=== PATIENT | male | born 1940 | race African-American/Black ===

== ENCOUNTER → 2016-09-08 | Outpatient (CLI) | payer OTHER ==
--- NOTE | 2016-09-09 16:12 | RADIOLOGY REPORT (SQ) ---
EXAM DESCRIPTION: PET CT LIMITED COMPLETED DATE/TIME: 09/08/2016 8:31 pm REASON FOR STUDY: ABNORMAL FINDINGS OF LUNG CT R91.8 OTHER NONSPECIFIC ABNORMAL FINDING OF LUNG FIE LD COMPARISON: Outside CT chest not available RADIONUCLIDE AND DOSE: 11.3 mCi F18 FDG The route of agent administration: Intravenous FASTING BLOOD SUGAR: 93 mg/dl CONTRAST TYPE AND DOSE: No CT contrast given. TECHNIQUE: Blood glucose level was verified. Above dose of FDG was injected intravenously. 2-D seg mented attenuation correction images were obtained from the base of the skull to the midthighs. Nonc ontrast CT images were obtained for attenuation correction and fusion with emission images. CT image s were performed without oral or intravenous contrast and are not sensitive for parenchymal lesions. A series of overlapping emission PET images were obtained. Images reviewed and manipulated at [facility] work station by the radiologist. Images stored on PACS. LIMITATIONS: None. FINDINGS: HEAD AND NECK: No areas of abnormal metabolic activity in the soft tissues of the head and neck. CHEST: No areas of abnormal metabolic activity in the chest. On axial image 8, a less than 1 cm non metabolic scar is present in the left upper lobe. Calcified benign non metabolic granulomas are seen in the left upper lobe on axial image 92 and 99. ABDOMEN AND PELVIS: No areas of abnormal metabolic activity in the abdomen or pelvis. Expected physi ologic activity is present in the genitourinary system and bowel. PROXIMAL LOWER EXTREMITIES: No areas of abnormal metabolic activity in the soft tissues of the lower extremities. BONES: No abnormal metabolic activity in the visualized skeleton. ADDITIONAL CT FINDINGS: Obstructive lung disease. Coronary artery calcification. OTHER: Blood pool activity 1.9 SUV, liver activity 2.4 SUV IMPRESSION: No hypermetabolic lung lesions worrisome for malignancy. TECHNICAL DOCUMENTATION: JOB ID: [id number] [employer]- All Rights Reserved
== END ==
LOC: RAD 18:26
PROVIDERS: ATTEND Clinical Nurse Specialist Adult Health
DX: R91.8 Other nonspecific abnormal finding of lung field (principal)
CPT/HCPCS: 78814; A9552

== ENCOUNTER → 2018-04-14 | Outpatient (CLI) | payer OTHER ==
--- NOTE | 2018-04-15 10:11 | RADIOLOGY REPORT (SQ) ---
EXAM DESCRIPTION: PET CT SKULL/THIGH COMPLETED DATE/TIME: 04/14/2018 10:45 pm REASON FOR STUDY: R91.8 OTHER NONSPECIFIC ABNORMAL FINDING OF LUNG FIELD R91.8 OTHER NONSPECIFIC AB NORMAL FINDING OF LUNG FIELD COMPARISON: 09/08/2016 PET-CT CT chest report 10/14/2017 [facility] RADIONUCLIDE AND DOSE: 11.4 mCi F18 FDG The route of agent administration: Intravenous FASTING BLOOD SUGAR: 102 mg/dl CONTRAST TYPE AND DOSE: No CT contrast given. TECHNIQUE: Blood glucose level was verified. Above dose of FDG was injected intravenously. 2-D seg mented attenuation correction images were obtained from the base of the skull to the midthighs. Nonc ontrast CT images were obtained for attenuation correction and fusion with emission images. CT image s were performed without oral or intravenous contrast and are not sensitive for parenchymal lesions. A series of overlapping emission PET images were obtained. Images reviewed and manipulated at [facility] work station by the radiologist. Images stored on PACS. LIMITATIONS: None. FINDINGS: HEAD AND NECK: No areas of abnormal metabolic activity in the soft tissues of the head and neck. CHEST: In the posterior aspect left upper lobe just ventral to the major fissure, a part solid and p art alveolar density nodule is present measuring 1.3 x 0.9 cm in size on axial image 85. This has FUENTES V of less than background liver or blood pool activity. However, this is a partially solid nodule, w hich has demonstrated growth on previous outside cross-sectional imaging. Negative PET-CT should not deter biopsy of a clinically suspicious lung nodule. No worrisome mediastinal or hilar lymph nodes. Lung parenchyma is hyperinflated and hyperlucent from obstructive disease. ABDOMEN AND PELVIS: No areas of abnormal metabolic activity in the abdomen or pelvis. Expected physi ologic activity is present in the genitourinary system and bowel. PROXIMAL LOWER EXTREMITIES: No areas of abnormal metabolic activity in the soft tissues of the lower extremities. BONES: No abnormal metabolic activity in the visualized skeleton. ADDITIONAL CT FINDINGS: 4 cm left lower pole renal cortical cyst. Hiatal hernia. Calcified coronary arteries. Calcified granulomas posterior left mid lung OTHER: Liver background activity 2.5 SUV. Blood pool background activity 1.9 SUV. IMPRESSION: Mixed density 1.3 x 0.9 cm nodule posterior left upper lobe, with activity less than [place] liver/blood pool activity. Consider CT-guided biopsy of this nodule TECHNICAL DOCUMENTATION: JOB ID: [id number] [employer]- All Rights Reserved Reading location - IP/workstation name: [email or web address]
== END ==
LOC: RAD 15:40
PROVIDERS: ATTEND Clinical Nurse Specialist Adult Health
DX: R91.1 Solitary pulmonary nodule (principal); J84.10 Pulmonary fibrosis, unspecified; K44.9 Diaphragmatic hernia without obstruction or gangrene; I25.10 Atherosclerotic heart disease of native coronary artery without angina pectoris
CPT/HCPCS: 78815; A9552

== ENCOUNTER 2019-01-18 23:02 | Inpatient (IN) | payer OTHER ==
[2019-01-18] MEDS ORDERED: ONDANSETRON HCL INJ/PF 4 MG/2 ML SDV IV ONE (23:17)
--- NOTE | 2019-01-18 23:19 | ER Document Report ---
ED Medical Screen (RME) - General Chief Complaint: Abdominal Pain Stated Complaint: FEVER,STOMACH PAIN Time Seen by Provider: 01/18/19 23:11 Primary Care Provider: DYANA RODRIGUEZ NP [Primary Care Provider] - Follow up as needed Information source: Patient Notes: Patient presents complaining of chest congestion with subjective fever. Patient also complains of abdominal pain nausea and vomiting. Patient also complains of urinary frequency. No diarrhea. Patient denies any chest pain. I have greeted and performed a rapid initial assessment of this patient. A comprehensive ED assessment and evaluation of the patient, analysis of test results and completion of the medical decision making process will be conducted by additional ED providers. TRAVEL OUTSIDE OF THE [place] IN LAST 30 DAYS: No - Related Data Allergies/Adverse Reactions: No Known Allergies Allergy (Unverified 01/18/19 23:11) Home Medications: adolophine for BP Past Medical History - Social History Chew tobacco use (# tins/day): No Frequency of alcohol use: None Drug Abuse: None Physical Exam - Vital signs Vitals: Temp Pulse BP Pulse Ox 97.4 F 76 161/74 H 97 01/18/19 23:09 01/18/19 23:09 01/18/19 23:09 01/18/19 23:09 - Abdominal Tenderness: Tender - Generalized abdominal tenderness Course - Vital Signs Vital signs: Temp Pulse Resp BP Pulse Ox 97.4 F 76 161/74 H 97 01/18/19 23:09 01/18/19 23:09 01/18/19 23:09 01/18/19 23:09 Doctor's Discharge - Discharge Referrals: DYANA RODRIGUEZ NP [Primary Care Provider] - Follow up as needed
--- NOTE | 2019-01-18 23:58 | RADIOLOGY REPORT (SQ) ---
EXAM DESCRIPTION: [facility]: XR CHEST 2 VIEWS Views: 2 CLINICAL HISTORY: 78 years Male, cough COMPARISON: PET/CT 04/14/2018 FINDINGS: Lungs are somewhat hyperinflated, but clear. No acute infiltrate, effusion, or pneumothorax. An ill-defined nodular density in the left midlung field is similar to the previous PET/CT, estimated 8 mm diameter. There are several small calcific densities less than 4 mm in the left midlung field. Cardiomediastinal silhouette is within normal limits. Bony structures are unremarkable for age. IMPRESSION: 1. No acute cardiothoracic abnormality. 2. Left upper lobe nodule as on 04/14/2018
[2019-01-19 00:25] LABS: ABSOLUTE LYMPHOCYTES (AUTO) 0.8 10^3/uL (0.5-4.7); ABSOLUTE MONOCYTES (AUTO) 0.7 10^3/uL (0.1-1.4); ABSOLUTE NEUT (AUTO) 7.6 10^3/uL (1.7-8.2); BASOPHILS % (AUTO) 0.4 % (0-2); EOSINOPHILS % (AUTO) 0.1 % (0-6); HEMATOCRIT 44.2 % (37.9-51.0); HEMOGLOBIN 15.3 g/dL (13.5-17.0); LYMPHOCYTES % (AUTO) 9.3 % (13-45); MEAN CORPUSCULAR HEMOGLOBIN 31.8 pg (27.0-33.4); MEAN CORPUSCULAR HGB CONC 34.7 g/dL (32.0-36.0); MEAN CORPUSCULAR VOLUME 92 fl (80-97); MONOCYTES % (AUTO) 7.5 % (3-13); PLATELET COUNT 245 10^3/uL (150-450); RED BLOOD COUNT 4.83 10^6/uL (4.35-5.55); RED CELL DISTRIBUTION WIDTH 13.4 % (11.5-14.0); SEGMENTED NEUTROPHILS % (AUTO) 82.7 % (42-78); TOTAL CELLS COUNTED % (AUTO) 100 %; WHITE BLOOD COUNT 9.2 10^3/uL (4.0-10.5)
[2019-01-19] MEDS ORDERED: 1/2 NORMAL SALINE 1,000 ML IV ONE (00:32)
[2019-01-19] MEDS ORDERED: FAMOTIDINE INJ/PF 20 MG/2 ML SDV IV ONE (00:33)
--- NOTE | 2019-01-19 00:41 | ER Document Report ---
ED General - General Chief Complaint: Abdominal Pain Stated Complaint: FEVER,STOMACH PAIN Time Seen by Provider: 01/18/19 23:11 Primary Care Provider: DYANA RODRIGUEZ NP [Primary Care Provider] - Follow up as needed TRAVEL OUTSIDE OF THE [place] IN LAST 30 DAYS: No - HPI Notes: Mr. Mr. Hackett is a 78-year-old male followed at the [place] [facility] with a history of COPD and hypertension presenting tonight with a complaint of intermittent cramping mid epigastric and midline lower abdominal pain most of the day. He has had nausea associated with this but no vomiting. He denies fever chills. He denies dysuria. He denies radiation of pain to the back. Interestingly when he was evaluated at triage tonight he had an EKG ordered which shows apparent atrial flutter. Patient says he is not aware of having any type of cardiac rhythm disturbance in the past. He is not currently on any type of anticoagulation. He says the severity of his abdominal discomfort has been waxing and waning today and currently is only about 3/10 although earlier it was 8/10. - Related Data Allergies/Adverse Reactions: No Known Allergies Allergy (Unverified 01/18/19 23:11) Home Medications: adolophine for BP Past Medical History - General Information source: Patient - Social History Smoking Status: Never Smoker Chew tobacco use (# tins/day): No Frequency of alcohol use: None Drug Abuse: None Family History: Reviewed & Not Pertinent Patient has suicidal ideation: No Patient has homicidal ideation: No - Past Medical History Cardiac Medical History: Reports: Hx Hypertension Pulmonary Medical History: Reports: Hx COPD Review of Systems - Review of Systems Notes: Constitutional: Negative for fever. HENT: Negative for sore throat. Eyes: Negative for visual changes. Cardiovascular: Negative for chest pain. Respiratory: Negative for shortness of breath. Gastrointestinal: As per HPI. Genitourinary: Negative for dysuria. Musculoskeletal: Negative for back pain. Skin: Negative for rash. Neurological: Negative for headaches, weakness or numbness. 10 point ROS negative except as marked above and in HPI. Physical Exam - Vital signs Vitals: Temp Pulse BP Pulse Ox 97.4 F 76 161/74 H 97 01/18/19 23:09 01/18/19 23:09 01/18/19 23:09 01/18/19 23:09 Notes: GENERAL: Well-developed well-nourished appearing mild discomfort. SKIN: Good turgor no rashes. HEAD: Normocephalic atraumatic. EYES: PERRLA. Conjunctivae and sclerae clear. EARS: CANALS AND TMS CLEAR. NOSE: CLEAR. MOUTH: Moist mucosa. Good dentition. No stridor or edema. No drooling. NECK: Supple. No masses or thyromegaly. No adenopathy. Carotids 2+ without bruits. Mild JVD with flutter waves noted. BACK: Symmetrical without tenderness. CHEST: Respirations unlabored. Breath sounds clear and symmetrical. HEART: Regular rhythm. No murmur gallop or rub. ABDOMEN: Mild epigastric tenderness without masses, organomegaly or rebound. Bowel sounds normally active. No bruits. GENITALIA: Deferred. EXTREMITIES: No edema. No calf tenderness. Cap refill less than 1.5 seconds. Dorsalis pedis and posterior tibial pulses 3+ and symmetrical. NEUROLOGICAL: GCS 15. Alert and oriented x3. Normal gait. Fluent speech. Cranial nerves II through XII intact. Sensorimotor and cerebellar normal. Normal tone. Course - Re-evaluation Re-evalutation: 01/19/19 02:37 Based on this man's initial presentation I was concerned about possibility of mesenteric ischemia. His abdominal exam is very benign. His lactate level was not elevated. He does not have a fever and did not have elevation of white count. His INR is normal. His stool guaiac was negative here. CT scan of abdomen and pelvis with IV contrast was obtained and interestingly showed a lesion of the left kidney with radiologist including in his differential diagnosis possible acute infarction versus neoplasm versus pyelonephritis. Based on clinical circumstances I am very concerned about possibility of an acute infarction given his new finding of atrial flutter giving us a possible source for an embolus. Case was discussed with the hospitalist regarding possibility of local admission but he felt that this was not reasonable because we do not have any urology service available here. It was his recommendation we try to transfer the patient. I am going to go ahead and heparinize this gentleman on high-dose heparin protocol and I will simultaneously culture his urine and treat him empirically yohana Rabago. I have contacted [facility] and will try to coordinate a transfer for this gentleman. 01/19/19 03:17 Case was discussed by telephone with Dr. Yunier Batres with [facility] vascular [facility]. 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 He concurs with my treatment of the patient with high-dose IV heparin. He does not feel that the patient warrants transfer at this time and suggest that we admit him locally to medicine service and continue heparin. Recommendations have been discussed with the on-call hospitalist Dr. Flores who has agreed to admit patient to telemetry. - Vital Signs Vital signs: Temp Pulse Resp BP Pulse Ox 97.4 F 76 18 165/99 H 97 01/18/19 23:09 01/18/19 23:09 01/19/19 03:01 01/19/19 03:01 01/19/19 03:01 - Laboratory Result Diagrams: 01/19/19 00:02 01/19/19 00:02 Laboratory results interpreted by me: 01/19/19 01/19/19 01/19/19 00:02 00:02 00:40 Lymph % (Auto) 9.3 L Seg Neutrophils % 82.7 H Potassium 3.5 L Carbon Dioxide 31 H Glucose 123 H Total Bilirubin 1.4 H AST 108 H Total Protein 9.7 H Albumin 5.1 H Urine Protein 100 H Urine Glucose (UA) 50 H Urine Ketones 20 H Leukocyte Esterase Rfl TRACE H Discharge - Discharge Clinical Impression: Renal infarction, Atrial flutter Disposition: ADMITTED INPATIENT Admitting Provider: Mark (Hospitalist) Unit Admitted: Telemetry Referrals: DYANA RODRIGUEZ NP [Primary Care Provider] - Follow up as needed
[2019-01-19 01:01] LABS: ALBUMIN 5.1 g/dL (3.5-5.0); ALKALINE PHOSPHATASE 91 U/L (38-126); ANION GAP 12 (5-19); ASPARTATE AMINO TRANSFERASE 108 U/L (17-59); BILIRUBIN,DIRECT 0.3 mg/dL (0.0-0.4); BILIRUBIN,TOTAL 1.4 mg/dL (0.2-1.3); BLOOD UREA NITROGEN 8 mg/dL (7-20); CALCIUM 10.1 mg/dL (8.4-10.2); CARBON DIOXIDE 31 mmol/L (22-30); CHLORIDE 98 mmol/L (98-107); GLUCOSE 123 mg/dL (75-110); POTASSIUM 3.5 mmol/L (3.6-5.0); TOTAL PROTEIN 9.7 g/dL (6.3-8.2)
[2019-01-19 01:08] LABS: APPEARANCE,URINE CLEAR; BILIRUBIN,URINE NEGATIVE (NEGATIVE); COLOR,URINE YELLOW; GLUCOSE, URINE 50 mg/dL (NEGATIVE); KETONES,URINE 20 mg/dL (NEGATIVE); PROTEIN,URINE 100 mg/dL (NEGATIVE); URINE SPECIFIC GRAVITY 1.009; UROBILINOGEN,URINE NEGATIVE mg/dL (<2.0)
[2019-01-19 01:14] LABS: INTERNATIONAL RATION (INR) 1.03; PROTHROMBIN TIME 13.5 SEC (11.4-15.4)
[2019-01-19 01:15] LABS: PARTIAL THROMBOPLASTIN TIME 32.4 SEC (23.5-35.8)
--- NOTE | 2019-01-19 01:57 | RADIOLOGY REPORT (SQ) ---
EXAM DESCRIPTION: CT ABDOMEN PELVIS WITH IV CONTRAST COMPLETED DATE/TME: 01/19/2019 00:35 CLINICAL HISTORY: 78 years Male, r/o bowel ischemia Comparison: CT-PET 04/14/18 Technique: IV contrast. Coronal and sagittal reformat. This exam was performed according to our departmental dose-optimization program, which includes automated exposure control, adjustment of the mA and/or kV according to patient size and/or use of iterative reconstruction technique. [facility]: Dose Right [facility]: CareDose [facility]: Dose Right [facility]: Teradose 4D [facility]: PHARMAJET LIMITATIONS: None Findings: Moderate left renal cortical lesions measure up to 2.8 cm and 1.9-cm with diminished enhancement probably due to pyelonephritis. Differential diagnosis includes neoplasm. Additional bilateral renal cysts measure up to 4.1 cm on the left. Coronary arterial calcification/stent. Atherosclerotic vascular disease. Colonic diverticulosis. Small L4-L5 disc bulge. Osteoarthritis. No bowel wall thickening. No gross evidence of bowel ischemia. No ascites. No pneumoperitoneum. Normal appendix. No gross evidence of gallbladder inflammation, hepatobiliary obstruction, or portal vein defect. No bowel obstruction. No hydronephrosis or hydroureter. No renal/ureteral stone. No evidence of abdominal aortic aneurysm. Inferior thorax, liver, gallbladder, pancreas, spleen, adrenals, renal system, gastrointestinal tract, pelvic organs, lymphatics, vasculature, and musculoskeleton appear otherwise unremarkable. IMPRESSION: Moderate left renal cortical lesions measure up to 2.8 cm and 1.9-cm with diminished enhancement probably due to pyelonephritis. Differential diagnosis includes neoplasm and renal ischemia. Recommend multiphase contrast CT surveillance including at 12 weeks following initiation of clinically warranted therapy.
[2019-01-19] MEDS ORDERED: CEFTRIAXONE INJ 1000 MG VIAL IV ONE (02:31)
[2019-01-19] MEDS ORDERED: HEPARIN SODIUM,PORCINE/D5W 25,000 UNIT/250 ML RTUINJ IV PRN (02:35)
[2019-01-19] MEDS ORDERED: HEPARIN SOD (PORCINE) 1,000 UNIT/ML 10 ML VIAL IV ONE (02:35)
[2019-01-19] MEDS ORDERED: ONDANSETRON HCL INJ/PF 4 MG/2 ML SDV IV ONE (03:15)
[2019-01-19] MEDS ORDERED: MORPHINE SULFATE 10 MG/ML INJ IV PRN ×5 (03:15→09:48)
[2019-01-19] MEDS ORDERED: MAG HYDROX/AL HYDROX/SIMETH SUSP 30 ML UDCUP PO PRN (03:38)
[2019-01-19] MEDS ORDERED: LEVALBUTEROL HCL NEB 0.63 MG/3 ML AMPUL NEB PRN (03:38)
[2019-01-19] MEDS ORDERED: TEMAZEPAM 15 MG CAPSULE PO PRN (03:38)
[2019-01-19] MEDS ORDERED: PROMETHAZINE HCL INJ 25 MG/1 ML VIAL IV PRN (03:38)
[2019-01-19] MEDS ORDERED: MAGNESIUM HYDROXIDE SUSP 30 ML UDCUP PO PRN (03:38)
[2019-01-19] MEDS ORDERED: ACETAMINOPHEN 325 MG TABLET PO PRN (03:44)
[2019-01-19] MEDS ORDERED: HYDRALAZINE HCL INJ/PF 20 MG/1 ML SDV IV PRN (03:55)
[2019-01-19] MEDS: METOPROLOL TARTRATE 50 MG TABLET PO SCH ×3 (04:16→21:42)
[2019-01-19] MEDS ORDERED: HEPARIN SOD (PORCINE) 1,000 UNIT/ML 10 ML VIAL IV PRN ×2 (05:37)
[2019-01-19 06:17] LABS: PROTHROMBIN TIME 15.3 SEC (11.4-15.4)
[2019-01-19 06:22] LABS: CREATINE KINASE MB 2.47 ng/mL (<4.55)
[2019-01-19 06:24] LABS: TROPONIN I < 0.012 ng/mL
--- NOTE | 2019-01-19 07:30 | EKG REPORT ---
SEVERITY:- ABNORMAL ECG - ATRIAL FLUTTER NONSPECIFIC INTRAVENTRICULAR CONDUCTION DELAY : Confirmed by: Will Lyles MD 19-Jan-2019 07:30:26
[2019-01-19] MEDS: POTASSIUM CHLORIDE 10 MEQ CAPSULE.ER PO SCH ×2 (08:24→13:27)
[2019-01-19] MEDS: HEPARIN SODIUM,PORCINE/D5W 25,000 UNIT/250 ML RTUINJ IV PRN ×2 (08:30→21:47)
--- NOTE | 2019-01-19 09:46 | PDOC H&P ---
History of Present Illness Admission Date/PCP: 01/19/2019 03:15 DYANA RODRIGUEZ NP Patient complains of: Abdominal pain History of Present Illness: DAVIS HACKETT is a 78 year old male who presented to the emergency room with acute abdominal pain. He admits the sudden onset of intermittent severe cramping in his central abdomen midepigastric to suprapubic. The cramping pain did not radiate but was associated with nausea without vomiting. He denies other associated or accompanying signs or symptoms. He denies prior similar episodes. He has not identified any aggravating or ameliorating factors for his abdominal pain. In the emergency room he was found to have atrial flutter with a 4-1 block, and a CT scan of the abdomen which revealed lesions of the left renal cortex consistent with an acute renal infarctions. Patient was subsequently admitted to the hospital for further evaluation and treatment. Past Medical History Cardiac Medical History: Reports: Hypertension Denies: Atrial Fibrillation, Congestive Heart Failure, Coronary Artery Disease, DVT, Myocardial Infarction, Hyperlipidema, Pulmonary Embolism Pulmonary Medical History: Reports: Chronic Obstructive Pulmonary Disease (COPD) Denies: Asthma, Respiratory Failure EENT Medical History: Denies: Cataracts, Ears - Hearing aids Neurological Medical History: Denies: Hemorrhagic CVA, Ischemic CVA, Seizures Endocrine Medical History: Denies: Diabetes Mellitus Type 1, Diabetes Mellitus Type 2, Hyperthyroidism, Hypothyroidism, Obesity Renal/ Medical History: Denies: Chronic Kidney Disease, Nephrolithiasis Malignancy Medical History: Reports: None GI Medical History: Denies: Cirrhosis, Crohn's Disease, Hepatitis, Ulcerative Colitis Musculoskeltal Medical History: Denies: Arthritis, Gout Skin Medical History: Denies: Eczema, Psoriasis Psychiatric Medical History: Denies: Alcohol Dependency, Substance Abuse, Tobacco Dependency Traumatic Medical History: Reports: None Hematology: Denies: Anemia, Bleeding Tendencies Infectious Medical History: Reports: None Past Surgical History Past Surgical History: Reports: None Social History Information Source: Patient Lives with: Spouse/Significant other Smoking Status: Never Smoker Electronic Cigarette use?: No Frequency of Alcohol Use: None Hx Recreational Drug Use: No Drugs: None Hx Prescription Drug Abuse: No - Advance Directive Resuscitation Status: Full Code Surrogate healthcare decision maker:: Jennifer Hackett Family History Family History: denies: CAD, DM, Hypertension, Malignancy Parental Family History Reviewed: Yes Children Family History Reviewed: No Sibling(s) Family History Reviewed.: Yes Medication/Allergy Allergies/Adverse Reactions: No Known Allergies Allergy (Unverified 01/18/19 23:11) Review of Systems Constitutional: ABSENT: chills, fever(s) Eyes: ABSENT: visual disturbances, other - Eye pain Ears: ABSENT: hearing changes, other - Ear pain Nose, Mouth, and Throat: ABSENT: mouth pain, sore throat Cardiovascular: ABSENT: chest pain, palpitations Respiratory: ABSENT: cough, dyspnea Gastrointestinal: PRESENT: as per HPI, abdominal pain, nausea. ABSENT: constipation, diarrhea, vomiting Genitourinary: ABSENT: dysuria, hematuria Musculoskeletal: ABSENT: back pain, joint swelling, muscle weakness Integumentary: ABSENT: diaphoresis, pruritus, rash Neurological: ABSENT: confusion, convulsions, focal weakness, memory loss, syncope Psychiatric: ABSENT: anxiety, depression Endocrine: ABSENT: cold intolerance, heat intolerance Hematologic/Lymphatic: ABSENT: easy bleeding, easy bruising Allergic/Immunologic: ABSENT: seasonal rhinorrhea Physical Exam Vital Signs: Temp Pulse Resp BP Pulse Ox 97.4 F 76 18 165/99 H 97 01/18/19 23:09 01/18/19 23:09 01/19/19 03:01 01/19/19 03:01 01/19/19 03:01 Intake & Output 01/17/19 01/18/19 01/19/19 23:59 23:59 23:59 Weight 90.6 kg General appearance: PRESENT: no acute distress, cooperative Head exam: PRESENT: atraumatic, normocephalic Eye exam: PRESENT: conjunctiva pink. ABSENT: conjunctival injection, scleral icterus Ear exam: PRESENT: normal external ear exam. ABSENT: bleeding, drainage Mouth exam: PRESENT: dry mucosa, neck supple Neck exam: ABSENT: thyromegaly, tracheal deviation Respiratory exam: PRESENT: clear to auscultation raman, symmetrical, unlabored Cardiovascular exam: PRESENT: RRR, other - Atrial flutter with 4:1 block noted on monitor. ABSENT: clicks, gallop, rubs Pulses: PRESENT: normal radial pulses, normal dorsalis pedis pul Vascular exam: PRESENT: normal capillary refill. ABSENT: pallor GI/Abdominal exam: PRESENT: normal bowel sounds, soft. ABSENT: tenderness Rectal exam: PRESENT: deferred Extremities exam: ABSENT: joint swelling, pedal edema Musculoskeletal exam: ABSENT: deformity, dislocation Neurological exam: PRESENT: alert, oriented to person, oriented to place, oriented to time, oriented to situation, CN II-XII grossly intact. ABSENT: motor sensory deficit Psychiatric exam: PRESENT: appropriate affect, normal mood Skin exam: PRESENT: dry, intact, warm. ABSENT: jaundice, rash, urticaria Results Laboratory Results: 01/19/19 00:02 01/19/19 00:02 01/19/19 01/19/19 01/19/19 00:02 00:02 00:02 WBC 9.2 RBC 4.83 Hgb 15.3 Hct 44.2 MCV 92 MCH 31.8 MCHC 34.7 RDW 13.4 Plt Count 245 Seg Neutrophils % 82.7 H Sodium 141.4 Potassium 3.5 L Chloride 98 Carbon Dioxide 31 H Anion Gap 12 BUN 8 Creatinine 1.11 Est GFR ( Amer) > 60 Glucose 123 H Lactic Acid Calcium 10.1 Total Bilirubin 1.4 H AST 108 H Alkaline Phosphatase 91 Total Protein 9.7 H Albumin 5.1 H Lipase 32.8 TSH 1.24 Urine Color Urine Appearance Urine pH Ur Specific [place] Urine Protein Urine Glucose (UA) Urine Ketones Urine Blood Urine RBC (Auto) 01/19/19 01/19/19 00:40 00:44 WBC RBC Hgb Hct MCV MCH MCHC RDW Plt Count Seg Neutrophils % Sodium Potassium Chloride Carbon Dioxide Anion Gap BUN Creatinine Est GFR ( Amer) Glucose Lactic Acid 1.5 Calcium Total Bilirubin AST Alkaline Phosphatase Total Protein Albumin Lipase TSH Urine Color YELLOW Urine Appearance CLEAR Urine pH 9.0 Ur Specific [place] 1.009 Urine Protein 100 H Urine Glucose (UA) 50 H Urine Ketones 20 H Urine Blood NEGATIVE Urine RBC (Auto) 5 01/19/19 00:02 Troponin I < 0.012 Impressions: Chest X-Ray 01/18/19 23:17 IMPRESSION: 1. No acute cardiothoracic abnormality. 2. Left upper lobe nodule as on 04/14/2018 Abdomen/Pelvis CT 01/19/19 00:35 IMPRESSION: Moderate left renal cortical lesions measure up to 2.8 cm and 1.9-cm with diminished enhancement probably due to pyelonephritis. Differential diagnosis includes neoplasm and renal ischemia. Recommend multiphase contrast CT surveillance including at 12 weeks following initiation of clinically warranted therapy. Assessment and Plan - Diagnosis (1) Renal infarction Is this a current diagnosis for this admission?: Yes (2) Abdominal pain Qualifiers: Abdominal location: unspecified location Qualified Code(s): R10.9 - Unspecified abdominal pain Is this a current diagnosis for this admission?: Yes (3) Atrial flutter Qualifiers: Atrial flutter type: typical Qualified Code(s): I48.3 - Typical atrial flutter Is this a current diagnosis for this admission?: Yes (4) Chronic obstructive pulmonary disease Qualifiers: COPD type: unspecified COPD Qualified Code(s): J44.9 - Chronic obstructive pulmonary disease, unspecified Is this a current diagnosis for this admission?: Yes (5) Essential hypertension Is this a current diagnosis for this admission?: Yes (6) Hypokalemia Is this a current diagnosis for this admission?: Yes - Plan Summary Summary: Patient will be admitted to a medical floor with telemetry monitoring. He will receive usual supportive and symptomatic cares. He will be treated with a heparin infusion to maintain adequate anticoagulation. He will be seen in consultation with Dr. Lane for cardiology. A urology/vascular surgery consultation may be obtained when available. Empiric antibiotic therapy with Rocephin was initiated in the emergency room and will be continued until consultation has been obtained. Abdominal pain will be treated with morphine sulfate 2 to 4 mg IV every 2 hours on an as-needed basis utilizing a sliding scale for pain. The patient will be continued on his usual medications for his chronic medical problems as appropriate. He will be treated with a cardiac diet. Patient was started on oral potassium 20 mEq 3 times daily with meals. Daily CBCs and metabolic profiles will be followed. - Time Time Spent with patient: 25-34 minutes Medications reviewed and adjusted accordingly: Yes Anticipated discharge: Home - Inpatient Certification Based on my medical assessment, after consideration of the patient's comorbidities, presenting symptoms, or acuity I expect that the services needed warrant INPATIENT care.: Yes I certify that my determination is in accordance with my understanding of Medicare's requirements for reasonable and necessary INPATIENT services [42 CFR 412.3e].: Yes Medical Necessity: Need Close Monitoring Due to Risk of Patient Decompensation, Need For Continuous Telemetry Monitoring, Need for Pain Control, Risk of Complication if Not Cared For in Hospital, Risk of Diagnosis Which Will Require Inpatient Eval/Care/Monitoring
[2019-01-19] MEDS: FAMOTIDINE 20 MG TABLET PO SCH ×2 (10:46→21:42)
[2019-01-19] MEDS: DOCUSATE SODIUM 100 MG CAPSULE PO SCH ×2 (10:46→17:09)
[2019-01-19 13:23] LABS: CREATINE KINASE MB 2.14 ng/mL (<4.55)
[2019-01-19 13:27] LABS: TROPONIN I < 0.012 ng/mL
--- NOTE | 2019-01-19 14:04 | PDOC PROGRESS REPORT ---
Subjective Progress Note for:: 01/19/19 Subjective:: The patient is a pleasant 78-year-old male with a past medical history of hypertension and COPD who was admitted early this morning by the [employer] [facility] for abdominal pain and found to have new onset atrial flutter, mild hypokalemia, and renal infarction. The patient was seen on morning rounds. Is found resting in bed comfortably on room air. He tells me that his pain is significantly improved and he is grateful for the care he is received so far. He denies chest pain, palpitations, dyspnea, orthopnea, abdominal pain, nausea vomiting and diarrhea. He tolerated his breakfast without difficulty this morning. He has no new questions or concerns. No concerns per nursing. Reason For Visit: ACUTE LEFT RENAL INFARCTION,ATRIAL FLUTTER Physical Exam Vital Signs: Temp Pulse Resp BP Pulse Ox 97.4 F 76 21 H 135/97 H 93 01/18/19 23:09 01/18/19 23:09 01/19/19 06:01 01/19/19 06:01 01/19/19 06:01 Intake & Output 01/18/19 01/19/19 01/20/19 06:59 06:59 06:59 Intake Total 48 Output Total 1190 Balance -1142 Weight 90.6 kg General appearance: PRESENT: no acute distress, cooperative, well-developed, we ll-nourished Head exam: PRESENT: atraumatic, normocephalic Eye exam: PRESENT: conjunctiva pink, EOMI, PERRLA. ABSENT: scleral icterus Ear exam: PRESENT: normal external ear exam Mouth exam: PRESENT: moist, tongue midline Respiratory exam: PRESENT: clear to auscultation raman, symmetrical, unlabored. ABSENT: rales, rhonchi, wheezes Cardiovascular exam: PRESENT: irregular rhythm - Atrial flutter 4:1 conduction, +S1, +S2. ABSENT: diastolic murmur, rubs, systolic murmur Pulses: PRESENT: normal dorsalis pedis pul Vascular exam: PRESENT: normal capillary refill GI/Abdominal exam: PRESENT: normal bowel sounds, soft. ABSENT: distended, guarding, mass, organolmegaly, rebound, tenderness Rectal exam: PRESENT: deferred Extremities exam: PRESENT: full ROM. ABSENT: calf tenderness, clubbing, pedal edema Neurological exam: PRESENT: alert, awake, oriented to person, oriented to place, oriented to time, oriented to situation, CN II-XII grossly intact. ABSENT: motor sensory deficit Psychiatric exam: PRESENT: appropriate affect, normal mood. ABSENT: homicidal ideation, suicidal ideation Skin exam: PRESENT: dry, intact, warm. ABSENT: cyanosis, rash Results Laboratory Results: 01/19/19 00:02 01/19/19 00:02 01/19/19 01/19/19 01/19/19 00:02 00:02 00:02 WBC 9.2 RBC 4.83 Hgb 15.3 Hct 44.2 MCV 92 MCH 31.8 MCHC 34.7 RDW 13.4 Plt Count 245 Seg Neutrophils % 82.7 H Sodium 141.4 Potassium 3.5 L Chloride 98 Carbon Dioxide 31 H Anion Gap 12 BUN 8 Creatinine 1.11 Est GFR ( Amer) > 60 Glucose 123 H Lactic Acid Calcium 10.1 Total Bilirubin 1.4 H AST 108 H Alkaline Phosphatase 91 Total Protein 9.7 H Albumin 5.1 H Lipase 32.8 TSH 1.24 Urine Color Urine Appearance Urine pH Ur Specific [place] Urine Protein Urine Glucose (UA) Urine Ketones Urine Blood Urine RBC (Auto) 01/19/19 01/19/19 00:40 00:44 WBC RBC Hgb Hct MCV MCH MCHC RDW Plt Count Seg Neutrophils % Sodium Potassium Chloride Carbon Dioxide Anion Gap BUN Creatinine Est GFR ( Amer) Glucose Lactic Acid 1.5 Calcium Total Bilirubin AST Alkaline Phosphatase Total Protein Albumin Lipase TSH Urine Color YELLOW Urine Appearance CLEAR Urine pH 9.0 Ur Specific [place] 1.009 Urine Protein 100 H Urine Glucose (UA) 50 H Urine Ketones 20 H Urine Blood NEGATIVE Urine RBC (Auto) 5 01/19/19 01/19/19 01/19/19 00:02 05:06 05:06 Creatine Kinase 126 CK-MB (CK-2) 2.47 Troponin I < 0.012 < 0.012 01/19/19 01/19/19 12:40 12:40 Creatine Kinase 108 CK-MB (CK-2) 2.14 Troponin I < 0.012 Impressions: Chest X-Ray 01/18/19 23:17 IMPRESSION: 1. No acute cardiothoracic abnormality. 2. Left upper lobe nodule as on 04/14/2018 Abdomen/Pelvis CT 01/19/19 00:35 IMPRESSION: Moderate left renal cortical lesions measure up to 2.8 cm and 1.9-cm with diminished enhancement probably due to pyelonephritis. Differential diagnosis includes neoplasm and renal ischemia. Recommend multiphase contrast CT surveillance including at 12 weeks following initiation of clinically warranted therapy. Assessment and Plan - Diagnosis (1) Renal infarction Is this a current diagnosis for this admission?: Yes Plan: CT ABD/Pelvis demonstrated a moderate left renal cortical lesion measuring 2.8 x 1.9; pylenonephritis vs renal infarction. Spoke with Dr. Mari; recommends follow up CTA and Renal/Aorta U/s for definitive diagnosis. Both exams pending. Patient is admitted to the medical floor and continuous cardiac telemetry. Continue heparin drip. IV morphine as needed for pain. (2) Pyelonephritis Is this a current diagnosis for this admission?: Yes Plan: Possible pyelonephritis noted on CT. Urinalysis does not suggest UTI. Urine culture pending. We will continue IV Rocephin until pyelonephritis is definitively ruled out. (3) Abdominal pain Qualifiers: Abdominal location: unspecified location Qualified Code(s): R10.9 - Unspecified abdominal pain Is this a current diagnosis for this admission?: Yes Plan: Secondary to #1 & 2. Significantly improved. Management as above. (4) Atrial flutter Qualifiers: Atrial flutter type: typical Qualified Code(s): I48.3 - Typical atrial flutter Is this a current diagnosis for this admission?: Yes Plan: No known prior history. TSH 1.24. We will continue to monitor on continuous cardiac telemetry. Continue metoprolol 50 mg every 8 hours. Cardiology is consulted. (5) Chronic obstructive pulmonary disease Qualifiers: COPD type: unspecified COPD Qualified Code(s): J44.9 - Chronic obstructive pulmonary disease, unspecified Is this a current diagnosis for this admission?: Yes Plan: Stable and without exacerbation at this time. As needed nebulizer treatments. No indications for steroids or antibiotic therapy at this time. (6) Essential hypertension Is this a current diagnosis for this admission?: Yes Plan: Continue home dose amlodipine. Continue metoprolol 50 mg every 8 hours. Cardiac diet. (7) Hypokalemia Is this a current diagnosis for this admission?: Yes Plan: Has received oral replacement. Follow up chemistry. - Time Time Spent with patient: 25-34 minutes Medications reviewed and adjusted accordingly: Yes Anticipated discharge: Home Within: within 24 hours
--- NOTE | 2019-01-19 18:35 | PDOC CONSULTATION ---
Consultation-Blank Consultation: CARDIOLOGY CONSULTATION by Dr. Joselin Lane on 01/19/2019 REASON FOR CONSULTATION: Atrial flutter is being CONSULT REQUESTING PHYSICIAN: Dr. Jordan Squires, [facility]. HISTORY PRESENT ILLNESS: Patient is a 78-year-old Afro-[place] male who was admitted with sudden onset of flank pain without hematuria and had a CT scan of the pelvis which showed a lesion in the left kidney ischemia versus neoplasm and was found to be in atrial flutter and converted to sinus rhythm with short DC interval versus ectopic atrial rhythm on beta-blockers. The patient is on IV heparin at full anticoagulation dosage. The patient denies any history of atrial flutter in the past or feeling of palpitations. There is no chest pain or discomfort. There is no shortness of breath. There is no PND orthopnea. He has a history of hypertension and COPD. He states he quit smoking a long time ago but periodically smokes marijuana. There is no history of TIA CVA symptoms. The patient denies any hematuria. He denies any diabetes mellitus or thyroid disease. The patient denies any palpitations or dizziness or near syncope or syncope. There is no leg edema. There is no symptoms or signs suggestive of peripheral embolization. Past Medical History Cardiac Medical History: Reports: Hypertension Denies: Atrial Fibrillation, Congestive Heart Failure, Coronary Artery Disease, DVT, Myocardial Infarction, Hyperlipidema, Pulmonary Embolism Pulmonary Medical History: Reports: Chronic Obstructive Pulmonary Disease (COPD). He states in the past he was found to have a lung nodule, and a PET scan was negative, but was told to have a biopsy. When he went in for biopsy it was told that the mass/nodule had decreased in size and no biopsy was done. Denies: Asthma, Respiratory Failure EENT Medical History: Denies: Cataracts, Ears - Hearing aids Neurological Medical History: Denies: Hemorrhagic CVA, Ischemic CVA, Seizures Endocrine Medical History: Denies: Diabetes Mellitus Type 1, Diabetes Mellitus Type 2, Hyperthyroidism, Hypothyroidism, Obesity Renal/ Medical History: Denies: Chronic Kidney Disease, Nephrolithiasis Malignancy Medical History: Reports: None GI Medical History: Denies: Cirrhosis, Crohn's Disease, Hepatitis, Ulcerative Colitis Musculoskeltal Medical History: Denies: Arthritis, Gout Skin Medical History: Denies: Eczema, Psoriasis Psychiatric Medical History: Denies: Alcohol Dependency, Substance Abuse, Tobacco Dependency Traumatic Medical History: Reports: None Hematology: Denies: Anemia, Bleeding Tendencies Infectious Medical History: Reports: None Past Surgical History Past Surgical History: Reports: None Social History Information Source: Patient Lives with: Spouse/Significant other Smoking Status: Never Smoker Electronic Cigarette use?: No Frequency of Alcohol Use: None Hx Recreational Drug Use: No Drugs: None Hx Prescription Drug Abuse: No - Advance Directive Resuscitation Status: Full Code Surrogate healthcare decision maker:: Jennifer Hackett Family History Family History: denies: CAD, DM, Hypertension, Malignancy Parental Family History Reviewed: Yes Children Family History Reviewed: No Sibling(s) Family History Reviewed.: Yes Current Medications Generic Name Dose Route Start Last Admin Trade Name Freq PRN Reason Stop Dose Admin Acetaminophen 650 mg 01/19/19 03:44 Tylenol 325 Mg Tablet PO 02/18/19 03:43 Q4HP PRN For headache, pain or fever Al Hydrox/Mg Hydrox/Simethicone 30 ml 01/19/19 03:38 Maalox Plus Susp 30 Udcup PO 02/18/19 03:37 Q6HP PRN HEARTBURN Amlodipine Besylate 10 mg 01/20/19 10:00 Norvasc 10 Mg Tablet PO 02/19/19 09:59 DAILY BENNETT Docusate Sodium 100 mg 01/19/19 10:00 01/19/19 17:09 Colace 100 Mg Capsule PO 02/18/19 09:59 Not Given BID BENNETT Famotidine 20 mg 01/19/19 10:00 01/19/19 10:46 Pepcid 20 Mg Tablet PO 02/18/19 09:59 20 mg Q12 BENNETT Administration Heparin Sodium (Porcine) 0 - 15,000 unit 01/19/19 05:37 Heparin Inj 1,000 Unit/Ml 10 Ml Vial IV 02/18/19 05:36 .BOLUS PER PROTOCOL PRN RESPOND TO aPTT VALUE Protocol Hydralazine HCl 20 mg 01/19/19 03:55 Apresoline Inj/Pf 20 Mg/1 Ml Sdv IV 02/18/19 03:54 Q4HP PRN Give For Sbp > 160 / Dbp > 100 Heparin Sodium/Dextrose 25,000 unit in 250 mls @ 0 mls/hr 01/19/19 03:47 01/19/19 08:30 Heparin Rtu 25,000 Unit/250 Ml D5w Premix IV 02/18/19 02:34 13.59 mls/hr CONTINUOUS PRN 13.59 mls/hr THIS MED IS NOT "PRN" Administration Protocol Titrate Ceftriaxone Sodium/Dextrose 1 gm in 50 mls @ 100 mls/hr 01/19/19 22:00 Rocephin Rtu 1 Gm/D5w 50 Ml Premix IV 01/26/19 21:59 QHS BENNETT Levalbuterol HCl 0.63 mg 01/19/19 03:38 Xopenex Neb 0.63 Mg/3 Ml Ampul NEB 02/18/19 03:37 RTQ2HP PRN SHORTNESS OF BREATH Magnesium Hydroxide 30 ml 01/19/19 03:38 Milk Of Magnesia 30 Ml Udcup PO 02/18/19 03:37 HSP PRN FOR CONSTIPATION Metoprolol Tartrate 50 mg 01/19/19 04:00 01/19/19 13:26 Lopressor 50 Mg Tablet PO 02/18/19 03:59 50 mg Q8H BENNETT Administration Morphine Sulfate 2 mg 01/19/19 09:48 Morphine 10 Mg/Ml Inj IV 01/26/19 03:43 Q2HP PRN SEVERE PAIN Multivitamins 1 tab 01/20/19 10:00 Tab-A-Lukas (Multiple Vitamin) Tablet PO 02/19/19 09:59 DAILY BENNETT Promethazine HCl 12.5 mg 01/19/19 03:38 Phenergan Inj 25 Mg/1 Ml Vial IV 02/18/19 03:37 Q4HP PRN FOR NAUSEA/VOMITING Sodium Chloride 2.5 ml 01/19/19 06:00 01/19/19 16:24 Saline Flush 2.5 Ml Monoject Prefil Syrin IV 02/18/19 05:59 Not Given Q8 BENNETT Temazepam 15 mg 01/19/19 03:38 Restoril 15 Mg Capsule PO 01/26/19 03:37 HSP PRN SLEEP OR INSOMNIA Discontinued Medications Generic Name Dose Route Start Last Admin Trade Name Freq PRN Reason Stop Dose Admin Ceftriaxone Sodium 1,000 mg 01/19/19 02:31 01/19/19 02:38 Rocephin Inj 1000 Mg Vial IV 01/19/19 02:32 1,000 mg IVBAG (ED) ONE Administration Famotidine 20 mg 01/19/19 00:33 01/19/19 00:51 Pepcid Inj/Pf 20 Mg/2 Ml Sdv IV 01/19/19 00:34 20 mg NOW ONE Administration Heparin Sodium (Porcine) 7,200 unit 01/19/19 02:35 01/19/19 03:18 Heparin Inj 1,000 Unit/Ml 10 Ml Vial 80 unit/kg (7200 unit) 01/19/19 02:36 7,200 units IV Administration NOW ONE Heparin Sodium (Porcine) 0 - 15,000 unit 01/19/19 05:37 Heparin Inj 1,000 Unit/Ml 10 Ml Vial IV 02/18/19 05:36 .BOLUS PER PROTOCOL PRN RESPOND TO aPTT VALUE Protocol Sodium Chloride 1,000 mls @ 150 mls/hr 01/19/19 00:32 01/19/19 14:09 Nacl 0.45% 1000 Ml Iv Soln IV 01/19/19 07:11 Infused NOW ONE Infusion Heparin Sodium/Dextrose 25,000 unit in 250 mls @ 0 mls/hr 01/19/19 02:35 01/19/19 06:18 Heparin Rtu 25,000 Unit/250 Ml D5w Premix IV 02/18/19 02:34 0 ml/hr CONTINUOUS PRN 0 mls/hr THIS MED IS NOT "PRN" Titration Protocol Titrate Morphine Sulfate 4 mg 01/19/19 03:15 01/19/19 03:26 Morphine 10 Mg/Ml Inj IV 01/26/19 03:14 4 mg Q2HP PRN Administration PAIN SCALE PER Morphine Sulfate 2 mg 01/19/19 03:44 Morphine 10 Mg/Ml Inj IV 01/26/19 03:43 Q2HP PRN FOR PAIN SCALE 1-2 Morphine Sulfate 3 mg 01/19/19 03:44 Morphine 10 Mg/Ml Inj IV 01/26/19 03:43 Q2HP PRN FOR PAIN SCALE 3-4 Morphine Sulfate 4 mg 01/19/19 03:44 Morphine 10 Mg/Ml Inj IV 01/26/19 03:43 Q2HP PRN PAIN SCALE OF 5 Ondansetron HCl 4 mg 01/18/19 23:17 01/19/19 00:04 Zofran Inj/Pf 4 Mg/2 Ml Sdv IV 01/18/19 23:18 4 mg NOW ONE Administration Ondansetron HCl 4 mg 01/19/19 03:15 01/19/19 03:26 Zofran Inj/Pf 4 Mg/2 Ml Sdv IV 01/19/19 03:16 4 mg NOW ONE Administration Potassium Chloride 20 meq 01/19/19 08:00 01/19/19 13:27 Klor-Con 10 Meq Capsule Er PO 02/18/19 07:59 20 meq MEALS BENNETT Administration Medication/Allergy Allergies/Adverse Reactions:No Known Allergies Allergy (Unverified 01/18/19 23:11) Review of Systems Constitutional: ABSENT: chills, fever(s) Eyes: ABSENT: visual disturbances, other - Eye pain Ears: ABSENT: hearing changes, other - Ear pain Nose, Mouth, and Throat: ABSENT: mouth pain, sore throat Cardiovascular: ABSENT: chest pain, palpitations Respiratory: ABSENT: cough, dyspnea Gastrointestinal: PRESENT: as per HPI, abdominal pain, nausea. ABSENT: constipation, diarrhea, vomiting Genitourinary: ABSENT: dysuria, hematuria Musculoskeletal: ABSENT: back pain, joint swelling, muscle weakness Integumentary: ABSENT: diaphoresis, pruritus, rash Neurological: ABSENT: confusion, convulsions, focal weakness, memory loss, syncope Psychiatric: ABSENT: anxiety, depression Endocrine: ABSENT: cold intolerance, heat intolerance Hematologic/Lymphatic: ABSENT: easy bleeding, easy bruising Allergic/Immunologic: ABSENT: seasonal rhinorrhea PHYSICAL EXAMINATION: The patient is well-built and well-nourished in no acute distress. Selected Entries 01/19/19 01/19/19 15:53 16:00 Temperature 97.4 F Temperature Oral Source Heart Rate ( 60 Monitors) Respiratory 18 Rate Blood Pressure 131/78 H Blood Pressure 95 Mean BP Location Right Arm BP Position Supine O2 Sat by Pulse 100 Oximetry Oxygen Delivery Room Air Method HEAD: Is atraumatic normocephalic. EYES: Pupils equal round regular reactive to light and accommodation. Extraocular movements are normal. There is no conjunctival pallor. There is no scleral scleral icterus. Ears: Tympanic membranes are intact. External auditory canals are clear. NOSE: There is no deviated nasal septum. There is no inflammation of the nasal mucous membranes. MOUTH: Mucous membranes of the mouth are moist. Tongue is moist. There is no ulcers. There is no bleeding. THROAT: There is no redness of the oropharynx. There is exudates. SKIN: There is no petechia or ecchymosis there is no skin lesions or skin rashes. NECK: Is supple. There is no JVD. Carotids are equal there is no bruit there is no lymphadenopathy. There is no goiter. There is no accessory muscle respiration use. TRACHEA is central. LUNGS: Is clear to auscultation percussion without any rhonchi rales wheezing. There is diminished air entry and prolonged expiration. On percussion there is hyperresonance. HEART: S1-S2 is heard S1 is of normal intensity. There is no S3 gallop. There is no S4 gallop. There is systolic murmur left sternal border and the apex there is no rub. ABDOMEN: Soft there is mild discomfort on palpating the left flank. There is no hepatosplenomegaly. Bowel sounds are well heard. EXTREMITIES: Femorals are well felt. There is no femoral bruits. Leg pulses are well felt. There is no edema. There is no cyanosis or clubbing. There is no calf tenderness. There is no DVT or cellulitis. LICENSING DIRECTOR: The patient is conscious awake alert oriented x3 with no focal deficits. PSYCHIATRIC: The patient judgment insight are intact his affect is normal. Labs- Entire Visit 01/19/19 01/19/19 01/19/19 00:02 00:02 00:02 WBC 9.2 RBC 4.83 Hgb 15.3 Hct 44.2 MCV 92 MCH 31.8 MCHC 34.7 RDW 13.4 Plt Count 245 Lymph % (Auto) 9.3 L [place] % (Auto) 7.5 Eos % (Auto) 0.1 Baso % (Auto) 0.4 Absolute Neuts (auto) 7.6 Absolute Lymphs (auto) 0.8 Absolute Monos (auto) 0.7 Absolute Eos (auto) 0.0 Absolute Basos (auto) 0.0 Seg Neutrophils % 82.7 H PT INR APTT Sodium 141.4 Potassium 3.5 L Chloride 98 Carbon Dioxide 31 H Anion Gap 12 BUN 8 Creatinine 1.11 Est GFR ( Amer) > 60 Est GFR (MDRD) Non-Af > 60 Glucose 123 H Lactic Acid Calcium 10.1 Total Bilirubin 1.4 H Direct Bilirubin 0.3 Neonat Total Bilirubin Not Reportable Neonat Direct Bilirubin Not Reportable Neonat Indirect Bili Not Reportable AST 108 H ALT 92 Alkaline Phosphatase 91 Creatine Kinase CK-MB (CK-2) Troponin I < 0.012 Total Protein 9.7 H Albumin 5.1 H Lipase 32.8 TSH Urine Color Urine Appearance Urine pH Ur Specific [place] Urine Protein Urine Glucose (UA) Urine Ketones Urine Blood Urine Nitrite (Reflex) Urine Bilirubin Urine Urobilinogen Leukocyte Esterase Rfl Urine RBC (Auto) Urine WBC (Reflex) Squamous Epi Cells Auto Urine Mucus (Auto) Urine Ascorbic Acid 01/19/19 01/19/19 01/19/19 00:02 00:02 00:40 WBC RBC Hgb Hct MCV MCH MCHC RDW Plt Count Lymph % (Auto) [place] % (Auto) Eos % (Auto) Baso % (Auto) Absolute Neuts (auto) Absolute Lymphs (auto) Absolute Monos (auto) Absolute Eos (auto) Absolute Basos (auto) Seg Neutrophils % PT 13.5 INR 1.03 APTT 32.4 Sodium Potassium Chloride Carbon Dioxide Anion Gap BUN Creatinine Est GFR ( Amer) Est GFR (MDRD) Non-Af Glucose Lactic Acid Calcium Total Bilirubin Direct Bilirubin Neonat Total Bilirubin Neonat Direct Bilirubin Neonat Indirect Bili AST ALT Alkaline Phosphatase Creatine Kinase CK-MB (CK-2) Troponin I Total Protein Albumin Lipase TSH 1.24 Urine Color YELLOW Urine Appearance CLEAR Urine pH 9.0 Ur Specific [place] 1.009 Urine Protein 100 H Urine Glucose (UA) 50 H Urine Ketones 20 H Urine Blood NEGATIVE Urine Nitrite (Reflex) NEGATIVE Urine Bilirubin NEGATIVE Urine Urobilinogen NEGATIVE Leukocyte Esterase Rfl TRACE H Urine RBC (Auto) 5 Urine WBC (Reflex) 18 Squamous Epi Cells Auto <1 Urine Mucus (Auto) RARE Urine Ascorbic Acid NEGATIVE 01/19/19 01/19/19 01/19/19 00:44 05:06 05:06 WBC RBC Hgb Hct MCV MCH MCHC RDW Plt Count Lymph % (Auto) [place] % (Auto) Eos % (Auto) Baso % (Auto) Absolute Neuts (auto) Absolute Lymphs (auto) Absolute Monos (auto) Absolute Eos (auto) Absolute Basos (auto) Seg Neutrophils % PT INR APTT > 235.0 H* Sodium Potassium Chloride Carbon Dioxide Anion Gap BUN Creatinine Est GFR ( Amer) Est GFR (MDRD) Non-Af Glucose Lactic Acid 1.5 Calcium Total Bilirubin Direct Bilirubin Neonat Total Bilirubin Neonat Direct Bilirubin Neonat Indirect Bili AST ALT Alkaline Phosphatase Creatine Kinase 126 CK-MB (CK-2) Troponin I Total Protein Albumin Lipase TSH Urine Color Urine Appearance Urine pH Ur Specific [place] Urine Protein Urine Glucose (UA) Urine Ketones Urine Blood Urine Nitrite (Reflex) Urine Bilirubin Urine Urobilinogen Leukocyte Esterase Rfl Urine RBC (Auto) Urine WBC (Reflex) Squamous Epi Cells Auto Urine Mucus (Auto) Urine Ascorbic Acid 01/19/19 01/19/19 01/19/19 05:06 05:06 12:40 WBC RBC Hgb Hct MCV MCH MCHC RDW Plt Count Lymph % (Auto) [place] % (Auto) Eos % (Auto) Baso % (Auto) Absolute Neuts (auto) Absolute Lymphs (auto) Absolute Monos (auto) Absolute Eos (auto) Absolute Basos (auto) Seg Neutrophils % PT 15.3 INR 1.20 APTT 61.7 H Sodium Potassium Chloride Carbon Dioxide Anion Gap BUN Creatinine Est GFR ( Amer) Est GFR (MDRD) Non-Af Glucose Lactic Acid Calcium Total Bilirubin Direct Bilirubin Neonat Total Bilirubin Neonat Direct Bilirubin Neonat Indirect Bili AST ALT Alkaline Phosphatase Creatine Kinase CK-MB (CK-2) 2.47 Troponin I < 0.012 Total Protein Albumin Lipase TSH Urine Color Urine Appearance Urine pH Ur Specific [place] Urine Protein Urine Glucose (UA) Urine Ketones Urine Blood Urine Nitrite (Reflex) Urine Bilirubin Urine Urobilinogen Leukocyte Esterase Rfl Urine RBC (Auto) Urine WBC (Reflex) Squamous Epi Cells Auto Urine Mucus (Auto) Urine Ascorbic Acid 01/19/19 01/19/19 01/19/19 12:40 12:40 18:16 WBC RBC Hgb Hct MCV MCH MCHC RDW Plt Count Lymph % (Auto) [place] % (Auto) Eos % (Auto) Baso % (Auto) Absolute Neuts (auto) Absolute Lymphs (auto) Absolute Monos (auto) Absolute Eos (auto) Absolute Basos (auto) Seg Neutrophils % PT INR APTT Sodium Potassium Chloride Carbon Dioxide Anion Gap BUN Creatinine Est GFR ( Amer) Est GFR (MDRD) Non-Af Glucose Lactic Acid Calcium Total Bilirubin Direct Bilirubin Neonat Total Bilirubin Neonat Direct Bilirubin Neonat Indirect Bili AST ALT Alkaline Phosphatase Creatine Kinase 108 97 CK-MB (CK-2) 2.14 Troponin I < 0.012 Total Protein Albumin Lipase TSH Urine Color Urine Appearance Urine pH Ur Specific [place] Urine Protein Urine Glucose (UA) Urine Ketones Urine Blood Urine Nitrite (Reflex) Urine Bilirubin Urine Urobilinogen Leukocyte Esterase Rfl Urine RBC (Auto) Urine WBC (Reflex) Squamous Epi Cells Auto Urine Mucus (Auto) Urine Ascorbic Acid 01/19/19 18:16 WBC RBC Hgb Hct MCV MCH MCHC RDW Plt Count Lymph % (Auto) [place] % (Auto) Eos % (Auto) Baso % (Auto) Absolute Neuts (auto) Absolute Lymphs (auto) Absolute Monos (auto) Absolute Eos (auto) Absolute Basos (auto) Seg Neutrophils % PT INR APTT Sodium Potassium Chloride Carbon Dioxide Anion Gap BUN Creatinine Est GFR ( Amer) Est GFR (MDRD) Non-Af Glucose Lactic Acid Calcium Total Bilirubin Direct Bilirubin Neonat Total Bilirubin Neonat Direct Bilirubin Neonat Indirect Bili AST ALT Alkaline Phosphatase Creatine Kinase CK-MB (CK-2) 2.04 Troponin I < 0.012 Total Protein Albumin Lipase TSH Urine Color Urine Appearance Urine pH Ur Specific [place] Urine Protein Urine Glucose (UA) Urine Ketones Urine Blood Urine Nitrite (Reflex) Urine Bilirubin Urine Urobilinogen Leukocyte Esterase Rfl Urine RBC (Auto) Urine WBC (Reflex) Squamous Epi Cells Auto Urine Mucus (Auto) Urine Ascorbic Acid Chest X-Ray 01/18/19 23:17 IMPRESSION: 1. No acute cardiothoracic abnormality. 2. Left upper lobe nodule as on 04/14/2018 Abdomen/Pelvis CT 01/19/19 00:35 IMPRESSION: Moderate left renal cortical lesions measure up to 2.8 cm and 1.9-cm with diminished enhancement probably due to pyelonephritis. Differential diagnosis includes neoplasm and renal ischemia. Recommend multiphase contrast CT surveillance including at 12 weeks following initiation of clinically warranted therapy. The patient's initial EKG shows atrial flutter with 42 1 block. Subsequent EKG shows sinus rhythm with short DC interval versus ectopic atrial rhythm. IMPRESSION/RECOMMENDATION: 1. Paroxysmal atrial flutter: Continue beta-mitzy. Continue full dose IV heparin. The patient's corrected Timothy vas 2 score is 2 and hence chronic anticoagulation is recommended. Later once the renal work-up is done then the patient may be switched to oral anticoagulant agent. Note in view of the renal lesions would recommend an echocardiogram to make sure that this renal lesion lesions are not the result of embolic phenomena. 2. Flank pain with the left renal cortical lesions: The differential diagnosis is ischemia versus infarction versus neoplasm. Patient is having further renal work-up including CTA of the renal arteries. 3. Hypertension: Blood pressure well controlled continue current medication. 4. History of lung nodule: Would recommend repeating a CT of the chest. 5. COPD: At baseline without exacerbation. Medications reviewed management plan and medical regimen discussed with the attending provider on the case. Medical decision making is of high complexity. 60 minutes spent on this patient more than 50% of time spent in direct patient care. Will follow.
[2019-01-19 19:09] LABS: CREATINE KINASE MB 2.04 ng/mL (<4.55)
[2019-01-19 19:18] LABS: TROPONIN I < 0.012 ng/mL
[2019-01-19] MEDS ORDERED: CEFTRIAXONE 1 GM/D5W RTU 1 GM/50 ML RTUPB IV SCH (22:00)
--- NOTE | 2019-01-19 22:45 | EKG REPORT ---
SEVERITY:- ABNORMAL ECG - SINUS RHYTHM NONSPECIFIC IVCD WITH LAD : Confirmed by: Will Lyles MD 19-Jan-2019 22:44:36
--- NOTE | 2019-01-20 05:40 | RADIOLOGY REPORT (SQ) ---
EXAM DESCRIPTION: CT ABDOMEN PELVIS WITHOUT THEN WITH IV CONTRAST COMPLETED DATE/TME: 01/20/2019 01:00 CLINICAL HISTORY: 78 years Male, ? renal infaction on CT Comparison: 01/20/19 Technique: IV contrast. Coronal and sagittal reformat. This exam was performed according to our departmental dose-optimization program, which includes automated exposure control, adjustment of the mA and/or kV according to patient size and/or use of iterative reconstruction technique. 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 No evidence of aortic aneurysm, dissection, or occlusion. No evidence of pulmonary embolus. Patent major vessels of the abdomen and pelvis including the celiac, mesenteric, renal , and iliac arteries. Coronary arterial calcification/stent. Atherosclerotic vascular disease. Renal arterial calcification without major vessel stenosis or occlusion. No hemorrhage/hematoma. Vascular system appears otherwise unremarkable. Multiple wedge-shaped defects of the left kidney may indicate renal infarction or pyelonephritis. Additional bilateral renal cysts measure up to 4.1 cm on the left. Mild bilateral perinephric fat stranding. Colonic diverticulosis. Small L4-L5 disc bulge. No ascites. No pneumoperitoneum. Normal appendix. No gross evidence of gallbladder inflammation, hepatobiliary obstruction, or portal vein defect. No bowel obstruction. No hydronephrosis or hydroureter. No renal/ureteral stone. Inferior thorax, liver, gallbladder, pancreas, spleen, adrenals, renal system, gastrointestinal tract, pelvic organs, lymphatics, vasculature, and musculoskeleton appear otherwise unremarkable. IMPRESSION: 1. No significant change. Multiple wedge-shaped defects of the left kidney may indicate renal infarction or pyelonephritis. Differential diagnosis includes neoplasm. Recommend multiphase contrast CT surveillance including at 12 weeks following initiation of clinically 2. 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 Coronary arterial calcification/stent. Atherosclerotic vascular disease. Renal arterial calcification.
[2019-01-20 06:51] LABS: HEMATOCRIT 40.9 % (37.9-51.0); MEAN CORPUSCULAR HEMOGLOBIN 31.5 pg (27.0-33.4); MEAN CORPUSCULAR HGB CONC 34.3 g/dL (32.0-36.0); MEAN CORPUSCULAR VOLUME 92 fl (80-97); PLATELET COUNT 218 10^3/uL (150-450); RED BLOOD COUNT 4.46 10^6/uL (4.35-5.55); RED CELL DISTRIBUTION WIDTH 13.6 % (11.5-14.0); WHITE BLOOD COUNT 12.5 10^3/uL (4.0-10.5)
[2019-01-20 07:20] LABS: ANION GAP 9 (5-19); BLOOD UREA NITROGEN 16 mg/dL (7-20); CALCIUM 9.2 mg/dL (8.4-10.2); CARBON DIOXIDE 29 mmol/L (22-30); CHLORIDE 97 mmol/L (98-107); CHOLESTEROL 204.19 mg/dL (0-200); GLUCOSE 97 mg/dL (75-110); POTASSIUM 3.9 mmol/L (3.6-5.0); TRIGLYCERIDES 90 mg/dL (<150)
[2019-01-20 07:30] LABS: DIRECT LDL 130 mg/dL (<100)
[2019-01-20] MEDS: DOCUSATE SODIUM 100 MG CAPSULE PO SCH (09:16)
[2019-01-20] MEDS: FAMOTIDINE 20 MG TABLET PO SCH (09:16)
[2019-01-20] MEDS: METOPROLOL TARTRATE 50 MG TABLET PO SCH (09:16)
[2019-01-20] MEDS ORDERED: AMLODIPINE BESYLATE 10 MG TABLET PO SCH (10:00)
[2019-01-20] MEDS ORDERED: MULTIVITAMIN TABLET PO SCH (10:00)
--- NOTE | 2019-01-20 11:50 | XCELERA REPORT ---
[address] [address] Transthoracic Echocardiogram Report Name: DAVIS BARON Age: 78 yrs Gender: Male : 1940 Patient Status: Inpatient Patient Location: [address] [place] [address] Study Date: 01/19/2019 08:01 PM Height: 72 in Weight: 199 lb BSA: 2.1 m2 Procedure: A two-dimensional transthoracic echocardiogram with color flow and Doppler was performed. The study was technically limited with all images being suboptimal in quality. Reason For Study: Paroxysmal Atrial Flutter History: Paroxysmal Atrial Flutter. Ordering Physician: JOSELIN JIMENEZ Performed By: Keyana Lara Interpretation Summary The left ventricle is normal in size. There is normal left ventricular wall thickness. LV EF is 65% Left ventricular systolic function is normal. Doppler measurements suggest normal left ventricular diastolic function The left ventricular wall motion is normal. There is no thrombus. No ASD ,VSD ,or PFO seen. RA and RV are off axis.Suspect RA and RV enlargement. The left atrial size is normal. There is no evidence of mitral valve prolapse. There is no vegetation seen on the mitral valve. There is no mitral valve stenosis. There is a trace amount of mitral regurgitation There is no aortic valvular vegetation. There is no LVOT obstruction. There is aortic sclerosis without aortic stenosis. There is a trace amount of aortic regurgitation There is no tricuspid stenosis. There is a moderate amount of tricuspid regurgitation There is moderate pulmonary hypertension by echo RVSP is 48 to 53 mm of Hg , with RA mean of 15 to 20. There is no pulmonic valvular stenosis. There is a trace amount of pulmonic regurgitation The aortic root is normal size. The inferior vena cava appeared dilated and decreased < 50% with respiration (RAP 15-20 mmHg) There is no pericardial effusion. MMode/2D Measurements & Calculations RVDd: 2.1 cm LVIDd: 4.8 cm FS: 40.0 % Ao root diam: 3.1 cm IVSd: 0.99 cm LVIDs: 2.9 cm EDV(Teich): Ao root area: LVPWd: 0.86 cm 105.6 ml 7.3 cm2 ESV(Teich): 31.0 mlLA dimension: 3.1 cm EF(Teich): 70.6 % LVLd ap4: 5.7 cm SV(MOD-sp4): EDV(MOD-sp4): 36.0 ml 55.0 ml LVLs ap4: 4.5 cm ESV(MOD-sp4): 19.0 ml EF(MOD-sp4): 65.5 % Doppler Measurements & Calculations MV E max bladimir: MV P1/2t max bladimir: Ao V2 max: LV V1 max P.1 cm/sec 96.0 cm/sec 121.2 cm/sec 4.1 mmHg MV A max bladimir: MV P1/2t: 61.0 msec Ao max PG: LV V1 max: 47.2 cm/sec MVA(P1/2t): 3.6 cm2 5.9 mmHg 101.8 cm/sec MV E/A: 1.7 MV dec slope: 460.5 cm/sec2 MV dec time: 0.17 sec PA V2 max: PI end-d bladimir: TR max bladimir: MV P1/2t-pr_phl: 65.0 cm/sec 82.4 cm/sec 287.8 cm/sec 61.0 msec PA max PG: TR max P.7 mmHg 33.1 mmHg Left Ventricle The left ventricle is normal in size. There is normal left ventricular wall thickness. LV EF is 65%. Left ventricular systolic function is normal. Doppler measurements suggest normal left ventricular diastolic function. The left ventricular wall motion is normal. There is no thrombus. No ASD ,VSD ,or PFO seen. Right Ventricle RA and RV are off axis.Suspect RA and RV enlargement. Atria The left atrial size is normal. Mitral Valve There is mild to moderate mitral annular calcification. There is no evidence of mitral valve prolapse. There is no vegetation seen on the mitral valve. There is no mitral valve stenosis. There is a trace amount of mitral regurgitation. Aortic Valve There is no aortic valvular vegetation. There is no LVOT obstruction. There is aortic sclerosis without aortic stenosis. There is a trace amount of aortic regurgitation. Tricuspid Valve There is no tricuspid stenosis. There is a moderate amount of tricuspid regurgitation. There is moderate pulmonary hypertension by echo. RVSP is 48 to 53 mm of Hg , with RA mean of 15 to 20. Pulmonic Valve There is no pulmonic valvular stenosis. There is a trace amount of pulmonic regurgitation. Great Vessels The aortic root is normal size. The inferior vena cava appeared dilated and decreased < 50% with respiration (RAP 15-20 mmHg). Effusions There is no pericardial effusion. : JOSELIN JIMENEZ, Joselin
--- NOTE | 2019-01-20 14:16 | RADIOLOGY REPORT (SQ) ---
EXAM DESCRIPTION: [facility] DUPLEX ART/MAXIM FLOW COMPLETED DATE/TIME: 01/20/2019 5:52 am REASON FOR STUDY: Renal infarction COMPARISON: CT angio abdomen and pelvis 01/20/2019 TECHNIQUE: Realtime and static grayscale images acquired. Selected color Doppler, velocities and spe ctral images recorded. LIMITATIONS: Difficult to visualize the renal artery origins off the aorta. Prior CT angio 01/21/20 19 was reviewed, no ostial renal artery stenosis is suspected. FINDINGS: RIGHT KIDNEY: RENAL ARTERY VELOCITIES: At the hilum, 120 cm/sec. Segmental artery velocity 85 cm/sec. RENAL VEIN: Color doppler flow present, patent. VELOCITY RATIO: Normal. Normal waveforms. KIDNEY: Normal size. No hydronephrosis. 2 cm right lower pole parapelvic cyst. LEFT KIDNEY: RENAL ARTERY VELOCITIES: At the hilum, 126 cm/sec. Segmental artery velocity 50 cm/sec. RENAL VEIN: Unable to discern the left renal vein is patent by today's Doppler VELOCITY RATIO: Normal. Normal waveforms. KIDNEY: Normal size. No hydronephrosis. Left lower pole 3 cm cyst, 2 cm cyst, 1 cm cyst. BLADDER: Normal. OTHER: After this initial study was completed, patient was brought back down to the ultrasound suite and repeat imaging of the left renal vein was performed. We were unable to discern whether the left renal vein is patent because of midline bowel gas. IMPRESSION: NO DOPPLER EVIDENCE OF HEMODYNAMICALLY SIGNIFICANT RENAL ARTERY STENOSIS. UNABLE TO DISCERN IF THERE IS TRULY LEFT RENAL VEIN THROMBOSIS ON THE STUDY. LIMITATIONS OF THIS DM DY WERE DISCUSSED WITH JUAN CARLOS KONG COMMENT: NORMAL RENAL ARTERY/AORTA VELOCITY RATIO IS LESS THAN OR EQUAL TO 3.5. TECHNICAL DOCUMENTATION: JOB ID: [id number] [employer]- All Rights Reserved Reading location - IP/workstation name: [facility]
[2019-01-20 17:06] VITALS: BP 140/80
[2019-01-20] MEDS ORDERED: APIXABAN 2.5 MG TABLET PO SCH (18:00)
--- NOTE | 2019-01-20 22:32 | Progress Note ---
Provider Note Provider Note: [facility] cardiology PROGRESS NOTE by Dr. Joselin Lane on 01/20/2019 SUBJECTIVE: The patient remains in sinus bradycardia there is no recurrence of atrial flutter. His flank pain is much improved. There is no hematuria. There is no chest pain or discomfort. There is no TIA CVA symptoms. There is no shortness of breath there is no PND orthopnea or wheezing or cough. There is no atrial or ventricular arrhythmia seen on the monitor. There is no TIA CVA symptoms. There is no bleeding on Eliquis. PHYSICAL EXAMINATION: The patient is well-built well-nourished in no acute distress. Selected Entries 01/20/19 08:59 Temperature 98.5 F Pulse Rate 61 Respiratory 16 Rate Blood Pressure 155/69 H Blood Pressure 97 Mean BP Location Left Arm O2 Sat by Pulse 98 Oximetry Oxygen Delivery Room Air Method HEAD: Is atraumatic normocephalic. EYES: Pupils equal round regular reactive to light and accommodation. Extraocular movements are normal. There is no conjunctival pallor. There is no scleral scleral icterus. Ears: Tympanic membranes are intact. External auditory canals are clear. NOSE: There is no deviated nasal septum. There is no inflammation of the nasal mucous membranes. MOUTH: Mucous membranes of the mouth are moist. Tongue is moist. There is no ulcers. There is no bleeding. THROAT: There is no redness of the oropharynx. There is exudates. SKIN: There is no petechia or ecchymosis there is no skin lesions or skin rashes. NECK: Is supple. There is no JVD. Carotids are equal there is no bruit there is no lymphadenopathy. There is no goiter. There is no accessory muscle respiration use. TRACHEA is central. LUNGS: Is clear to aus cultation percussion without any rhonchi rales wheezing. There is diminished air entry and prolonged expiration. On percussion there is hyperresonance. HEART: S1-S2 is heard S1 is of normal intensity. There is no S3 gallop. There is no S4 gallop. There is systolic murmur left sternal border and the apex there is no rub. ABDOMEN: Soft there is mild discomfort on palpating the left flank. There is no hepatosplenomegaly. Bowel sounds are well heard. EXTREMITIES: Femorals are well felt. There is no femoral bruits. Leg pulses are well felt. There is no edema. There is no cyanosis or clubbing. There is no calf tenderness. There is no DVT or cellulitis. ROTARY PEEL OVEN TENDER: The patient is conscious awake alert oriented x3 with no focal deficits. PSYCHIATRIC: The patient judgment insight are intact his affect is normal. Labs- All tests 24 hr 01/20/19 01/20/19 01/20/19 06:12 06:12 06:12 WBC 12.5 H RBC 4.46 Hgb 14.0 Hct 40.9 MCV 92 MCH 31.5 MCHC 34.3 RDW 13.6 Plt Count 218 APTT Sodium 135.1 L Potassium 3.9 Chloride 97 L Carbon Dioxide 29 Anion Gap 9 BUN 16 Creatinine 1.37 H Est GFR ( Amer) > 60 Est GFR (MDRD) Non-Af 50 L Glucose 97 Calcium 9.2 Magnesium 1.9 Triglycerides 90 Cholesterol 204.19 H LDL Cholesterol Direct 130 H VLDL Cholesterol 18.0 HDL Cholesterol 57 TSH 0.79 01/20/19 06:12 WBC RBC Hgb Hct MCV MCH MCHC RDW Plt Count APTT 75.9 H Sodium Potassium Chloride Carbon Dioxide Anion Gap BUN Creatinine Est GFR ( Amer) Est GFR (MDRD) Non-Af Glucose Calcium Magnesium Triglycerides Cholesterol LDL Cholesterol Direct VLDL Cholesterol HDL Cholesterol TSH Chest X-Ray 01/18/19 23:17 IMPRESSION: 1. No acute cardiothoracic abnormality. 2. Left upper lobe nodule as on 04/14/2018 Abdomen/Pelvis CT 01/19/19 00:35 IMPRESSION: Moderate left renal cortical lesions measure up to 2.8 cm and 1.9-cm with diminished enhancement probably due to pyelonephritis. Differential diagnosis includes neoplasm and renal ischemia. Recommend multiphase contrast CT surveillance including at 12 weeks following initiation of clinically warranted therapy. Vascular Ultrasound 01/20/19 00:00 IMPRESSION: NO DOPPLER EVIDENCE OF HEMODYNAMICALLY SIGNIFICANT RENAL ARTERY STENOSIS. UNABLE TO DISCERN IF THERE IS TRULY LEFT RENAL VEIN THROMBOSIS ON THE STUDY. LIMITATIONS OF THIS STUDY WERE DISCUSSED WITH JUAN CARLOS KONG Abdomen/Pelvis CTA 01/20/19 01:00 IMPRESSION: 1. No significant change. Multiple wedge-shaped defects of the left kidney may indicate renal infarction or pyelonephritis. Differential diagnosis includes neoplasm. Recommend multiphase contrast CT surveillance including at 12 weeks following initiation of clinically 2. 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 Coronary arterial calcification/stent. Atherosclerotic vascular disease. Renal arterial calcification. ECHOCARDIOGRAM: Patient is a previous chamber size is normal. There is no wall motion abnormality. LV ejection fraction is normal. There is no clot seen. There is no significant valvular lesions. There is mild to moderate pulmonary hypertension. These findings were discussed with the patient. MPRESSION/RECOMMENDATION: 1. Paroxysmal atrial flutter: Continue beta-mitzy. Continue full dose IV heparin. The patient's corrected Timothy vas 2 score is 2 and hence chronic anticoagulation is recommended. Later once the renal work-up is done then the patient may be switched to oral anticoagulant agent. Note in view of the renal lesions would recommend an echocardiogram to make sure that this renal lesion lesions are not the result of embolic phenomena. 2. Flank pain with the left renal cortical lesions: The differential diagnosis is ischemia versus infarction versus neoplasm. Patient is having further renal work-up including CTA of the renal arteries. 3. Hypertension: Blood pressure well controlled continue current medication. 4. History of lung nodule: Would recommend repeating a CT of the chest. 5. COPD: At baseline without exacerbation. MEDICATIONS reviewed. Medication treatment and management plan discussed with the attending provider on the case. Medical decision making is of moderate complexity. 40 minutes spent on this patient more than 50% of time spent in direct patient care. Would recommend that the patient have an outpatient IV Lexiscan Cardiolite stress test and a 30-day event monitor.
--- NOTE | 2019-01-22 18:13 | PDOC DISCHARGE SUMMARY ---
Impression - Admit/DC Date/PCP Admission Date/Primary Care Provider: 01/19/19 03:49 DYANA RODRIGUEZ NP Discharge Date: 01/20/19 - Discharge Diagnosis (1) Renal infarction Is this a current diagnosis for this admission?: Yes (2) Pyelonephritis Is this a current diagnosis for this admission?: Yes (3) Abdominal pain Is this a current diagnosis for this admission?: Yes (4) Atrial flutter Is this a current diagnosis for this admission?: Yes (5) Chronic obstructive pulmonary disease Is this a current diagnosis for this admission?: Yes (6) Essential hypertension Is this a current diagnosis for this admission?: Yes (7) Hypokalemia Is this a current diagnosis for this admission?: Yes - Additional Information Resuscitation Status: Full Code Discharge Diet: Cardiac Discharge Activity: Activity As Tolerated, Balance Activity w/Rest Referrals: DYANA RODRIGUEZ NP [Primary Care Provider] - Follow up as needed Home Medications: Albuterol Sulfate [Proair HFA Inhalation Aerosol 8.5 gm MDI] 2 puff IH Q4HP PRN 01/19/19 Multivitamin [Multiple Vitamins] 1 tab PO DAILY 01/19/19 Acetaminophen [Tylenol 325 mg Tablet] 650 mg PO Q4HP PRN tablet 01/20/19 Apixaban [Eliquis 2.5 mg Tablet] 2.5 mg PO BID #14 tablet 01/22/19 Ciprofloxacin HCl [Cipro 500 mg Tablet] 500 mg PO BID #14 tablet 01/22/19 Metoprolol Tartrate [Lopressor 50 mg Tablet] 50 mg PO Q12 #14 tablet 01/22/19 History of Present Illiness History of Present Illness: Per H&P by Dr. Flores: DAVIS BARON is a 78 year old male who presented to the emergency room with acute abdominal pain. He admits the sudden onset of intermittent severe cramping in his central abdomen midepigastric to suprapubic. The cramping pain did not radiate but was associated with nausea without vomiting. He denies other associated or accompanying signs or symptoms. He denies prior similar episodes. He has not identified any aggravating or ameliorating factors for his abdominal pain. In the emergency room he was found to have atrial flutter with a 4-1 block, and a CT scan of the abdomen which revealed lesions of the left renal cortex consistent with an acute renal infarctions. Patient was subsequently admitted to the hospital for further evaluation and treatment. Hospital Course Hospital Course: The patient was admitted to the medical floor and continuous cardiac telemetry. CT ABD/Pelvis demonstrated a moderate left renal cortical lesion measuring 2.8 x 1.9; pylenonephritis vs renal infarction. Spoke with Dr. Mari; recommends follow up CTA and Renal/Aorta U/s for defi nitive diagnosis. CT of the abdomen pelvis showed multiple wedge-shaped defects of the left kidney possibly indicating renal infarction or pyelonephritis. Differential diagnosis includes neoplasm. Recommend multiphase contrast CT at 12 weeks. Vascular ultrasound showed no Doppler evidence of hemodynamically significant renal artery stenosis. Unable to discern if there is truly a left renal vein thrombosis on this study. Cardiology consult was obtained due to the patient's new onset atrial fibrillation. He was recommended to continue on beta-mitzy patient had a converted to a normal sinus rhythm. The patient's chads vas 2 score is 2; therefore he was started on renally dosed Eliquis. As the patient's urinalysis was suggestive of UTI, he was also treated with IV Rocephin while admitted and discharged on p.o. Cipro. The patient's remaining chronic medical conditions were stable throughout his admission. At time of discharge, patient was in stable condition, sinus bradycardia, a symptomatic, tolerating a regular diet with good urinary output. He was discharged home in the care of family members. He was advised to follow-up with his primary care provider within 1 week and to take his medications as prescribed. He was instructed to complete his full course of antibiotic therapy and to drink plenty of water. He was further encouraged to return to the emergency department as needed for concerning symptoms. Physical Exam Vital Signs: Temp Pulse Resp BP Pulse Ox 98.5 F 54 L 16 140/80 H 98 01/20/19 15:47 01/20/19 15:47 01/20/19 15:47 01/20/19 13:13 01/20/19 15:47 Intake & Output 01/21/19 01/22/19 01/23/19 06:59 06:59 06:59 Intake Total 100 Output Total 550 Balance -450 General appearance: PRESENT: no acute distress, well-developed, well-nourished Head exam: PRESENT: atraumatic, normocephalic Eye exam: PRESENT: conjunctiva pink, EOMI, PERRLA. ABSENT: scleral icterus Ear exam: PRESENT: normal external ear exam Mouth exam: PRESENT: moist, tongue midline Respiratory exam: PRESENT: clear to auscultation raman, symmetrical, unlabored. ABSENT: rales, rhonchi, wheezes Cardiovascular exam: PRESENT: RRR - Normal sinus rhythm. ABSENT: diastolic murmur, rubs, systolic murmur Pulses: PRESENT: normal dorsalis pedis pul Vascular exam: PRESENT: normal capillary refill GI/Abdominal exam: PRESENT: normal bowel sounds, soft. ABSENT: distended, guarding, mass, organolmegaly, rebound, tenderness Rectal exam: PRESENT: deferred Extremities exam: PRESENT: full ROM. ABSENT: calf tenderness, clubbing, pedal edema Musculoskeletal exam: PRESENT: ambulatory Neurological exam: PRESENT: alert, awake, oriented to person, oriented to place, oriented to time, oriented to situation, CN II-XII grossly intact. ABSENT: mo tor sensory deficit Psychiatric exam: PRESENT: appropriate affect, normal mood. ABSENT: homicidal ideation, suicidal ideation Skin exam: PRESENT: dry, intact, warm. ABSENT: cyanosis, rash Results Laboratory Results: WBC 12.5 10^3/uL (4.0-10.5) H 01/20/19 06:12 RBC 4.46 10^6/uL (4.35-5.55) 01/20/19 06:12 Hgb 14.0 g/dL (13.5-17.0) 01/20/19 06:12 Hct 40.9 % (37.9-51.0) 01/20/19 06:12 MCV 92 fl (80-97) 01/20/19 06:12 MCH 31.5 pg (27.0-33.4) 01/20/19 06:12 MCHC 34.3 g/dL (32.0-36.0) 01/20/19 06:12 RDW 13.6 % (11.5-14.0) 01/20/19 06:12 Plt Count 218 10^3/uL (150-450) 01/20/19 06:12 Lymph % (Auto) 9.3 % (13-45) L 01/19/19 00:02 [place] % (Auto) 7.5 % (3-13) 01/19/19 00:02 Eos % (Auto) 0.1 % (0-6) 01/19/19 00:02 Baso % (Auto) 0.4 % (0-2) 01/19/19 00:02 Absolute Neuts (auto) 7.6 10^3/uL (1.7-8.2) 01/19/19 00:02 Absolute Lymphs (auto) 0.8 10^3/uL (0.5-4.7) 01/19/19 00:02 Absolute Monos (auto) 0.7 10^3/uL (0.1-1.4) 01/19/19 00:02 Absolute Eos (auto) 0.0 10^3/uL (0.0-0.6) 01/19/19 00:02 Absolute Basos (auto) 0.0 10^3/uL (0.0-0.2) 01/19/19 00:02 Seg Neutrophils % 82.7 % (42-78) H 01/19/19 00:02 PT 15.3 SEC (11.4-15.4) 01/19/19 05:06 INR 1.20 01/19/19 05:06 APTT 75.9 SEC (23.5-35.8) H 01/20/19 06:12 Sodium 135.1 mmol/L (137-145) L 01/20/19 06:12 Potassium 3.9 mmol/L (3.6-5.0) 01/20/19 06:12 Chloride 97 mmol/L (98-107) L 01/20/19 06:12 Carbon Dioxide 29 mmol/L (22-30) 01/20/19 06:12 Anion Gap 9 (5-19) 01/20/19 06:12 BUN 16 mg/dL (7-20) 01/20/19 06:12 Creatinine 1.37 mg/dL (0.52-1.25) H 01/20/19 06:12 Est GFR ( Amer) > 60 (>60) 01/20/19 06:12 Est GFR (MDRD) Non-Af 50 (>60) L 01/20/19 06:12 Glucose 97 mg/dL (75-110) 01/20/19 06:12 Lactic Acid 1.5 mmol/L (0.7-2.1) 01/19/19 00:44 Calcium 9.2 mg/dL (8.4-10.2) 01/20/19 06:12 Magnesium 1.9 mg/dL (1.6-2.3) 01/20/19 06:12 Total Bilirubin 1.4 mg/dL (0.2-1.3) H 01/19/19 00:02 Direct Bilirubin 0.3 mg/dL (0.0-0.4) 01/19/19 00:02 Neonat Total Bilirubin Not Reportable 01/19/19 00:02 Neonat Direct Bilirubin Not Reportable 01/19/19 00:02 Neonat Indirect Bili Not Reportable 01/19/19 00:02 AST 108 U/L (17-59) H 01/19/19 00:02 ALT 92 U/L (<50) 01/19/19 00:02 Alkaline Phosphatase 91 U/L (38-126) 01/19/19 00:02 Creatine Kinase 97 U/L (55-170) 01/19/19 18:16 CK-MB (CK-2) 2.04 ng/mL (<4.55) 01/19/19 18:16 Troponin I < 0.012 ng/mL 01/19/19 18:16 Total Protein 9.7 g/dL (6.3-8.2) H 01/19/19 00:02 Albumin 5.1 g/dL (3.5-5.0) H 01/19/19 00:02 Triglycerides 90 mg/dL (<150) 01/20/19 06:12 Cholesterol 204.19 mg/dL (0-200) H 01/20/19 06:12 LDL Cholesterol Direct 130 mg/dL (<100) H 01/20/19 06:12 VLDL Cholesterol 18.0 mg/dL (10-31) 01/20/19 06:12 HDL Cholesterol 57 mg/dL (>40) 01/20/19 06:12 Lipase 32.8 U/L (23-300) 01/19/19 00:02 TSH 0.79 uIU/mL (0.47-4.68) 01/20/19 06:12 Urine Color YELLOW 01/19/19 00:40 Urine Appearance CLEAR 01/19/19 00:40 Urine pH 9.0 (5.0-9.0) 01/19/19 00:40 Ur Specific [place] 1.009 01/19/19 00:40 Urine Protein 100 mg/dL (NEGATIVE) H 01/19/19 00:40 Urine Glucose (UA) 50 mg/dL (NEGATIVE) H 01/19/19 00:40 Urine Ketones 20 mg/dL (NEGATIVE) H 01/19/19 00:40 Urine Blood NEGATIVE (NEGATIVE) 01/19/19 00:40 Urine Nitrite (Reflex) NEGATIVE (NEGATIVE) 01/19/19 00:40 Urine Bilirubin NEGATIVE (NEGATIVE) 01/19/19 00:40 Urine Urobilinogen NEGATIVE mg/dL (<2.0) 01/19/19 00:40 Leukocyte Esterase Rfl TRACE (NEGATIVE) H 01/19/19 00:40 Urine RBC (Auto) 5 /HPF 01/19/19 00:40 Urine WBC (Reflex) 18 /HPF 01/19/19 00:40 Squamous Epi Cells Auto <1 /HPF 01/19/19 00:40 Urine Mucus (Auto) RARE /LPF 01/19/19 00:40 Urine Ascorbic Acid NEGATIVE (NEGATIVE) 01/19/19 00:40 01/19/19 01/19/19 01/19/19 00:02 05:06 12:40 CK-MB (CK-2) 2.47 2.14 Troponin I < 0.012 < 0.012 < 0.012 01/19/19 18:16 CK-MB (CK-2) 2.04 Troponin I < 0.012 Impressions: Chest X-Ray 01/18/19 23:17 IMPRESSION: 1. No acute cardiothoracic abnormality. 2. Left upper lobe nodule as on 04/14/2018 Abdomen/Pelvis CT 01/19/19 00:35 IMPRESSION: Moderate left renal cortical lesions measure up to 2.8 cm and 1.9-cm with diminished enhancement probably due to pyelonephritis. Differential diagnosis includes neoplasm and renal ischemia. Recommend multiphase contrast CT surveillance including at 12 weeks following initiation of clinically warranted therapy. Vascular Ultrasound 01/20/19 00:00 IMPRESSION: NO DOPPLER EVIDENCE OF HEMODYNAMICALLY SIGNIFICANT RENAL ARTERY STENOSIS. UNABLE TO DISCERN IF THERE IS TRULY LEFT RENAL VEIN THROMBOSIS ON THE STUDY. LIMITATIONS OF THIS STUDY WERE DISCUSSED WITH JUAN CARLOS KONG Abdomen/Pelvis CTA 01/20/19 01:00 IMPRESSION: 1. No significant change. Multiple wedge-shaped defects of the left kidney may indicate renal infarction or pyelonephritis. Differential diagnosis includes neoplasm. Recommend multiphase contrast CT surveillance including at 12 weeks following initiation of clinically 2. 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 Coronary arterial calcification/stent. Atherosclerotic vascular disease. Renal arterial calcification. Plan Plan of Treatment: The patient was discharged home in stable condition into the care of family members. He was instructed to follow-up with his primary care provider within 1 week. Recommend that he have follow-up CT imaging of his left kidney in 6 to 8 weeks to evaluate response to medical treatment of his renal infarction. Recommend he also can consider proceeding with lung nodule biopsy. Instructed to take his medications as prescribed and to complete his full course of antibiotic treatment. Drink plenty of water. Return to the emergency department as needed for concerning symptoms. Time Spent: Greater than 30 Minutes Stroke Is this a Stroke Patient?: No Acute Heart Failure - Is this a Heart Failure Patient?: No
== END 2019-01-20 23:02 | disposition home or self-care (01) | DRG 699 ==
LOC: ER 23:02 → EH 01-19 03:49 → 3S 01-19 15:40
PROVIDERS: ADMIT Emergency Medicine; ATTEND Emergency Medicine
DX: N28.0 Ischemia and infarction of kidney (principal); N12 Tubulo-interstitial nephritis, not specified as acute or chronic; I48.92 Unspecified atrial flutter; N39.0 Urinary tract infection, site not specified; J44.9 Chronic obstructive pulmonary disease, unspecified; I10 Essential (primary) hypertension; E87.6 Hypokalemia; R91.1 Solitary pulmonary nodule; R00.1 Bradycardia, unspecified; Z79.01 Long term (current) use of anticoagulants; Z82.49 Family history of ischemic heart disease and other diseases of the circulatory system
CPT/HCPCS: 36415; 71046; 74174; 74177; 80048; 80053; 80061; 81001; 82550; 82553; 83605; 83690; 83735; 84443; 84484; 85025; 85027; 85610; 85730; 87040; 87086; 93005; 93010; 93306; 93976; 96361; 96365; 96367; 96375; 96376; 99285; J0696; J1644; J2270; J2405; J3490; S0028

== ENCOUNTER 2019-01-22 05:47 | Emergency (ER) | payer OTHER ==
--- NOTE | 2019-01-22 06:23 | ER Document Report ---
ED General - General Chief Complaint: Near Syncope Stated Complaint: HOT FLASHES Time Seen by Provider: 01/22/19 06:13 Primary Care Provider: DYANA VERGARA NP [Primary Care Provider] - Follow up as needed Mode of Arrival: Ambulatory Information source: Patient - and , [facility] Records TRAVEL OUTSIDE OF THE [place] IN LAST 30 DAYS: No - HPI Notes: 78 BM w/ h/o htn, COPD, new diagnoses since few day [facility] hospitalization & d/c 2 d/a of paroysmal A fib & "renal infarct vs pyelo" (CTA 2 d/a) presents today ambulatory w/ initially wants to not check in and just needs to ask some questions about his health in the 2 days since d/c. he tells triage reason for admission was "possible blood clot in [my] kidney, Rxed blood thinner. He says he hasn't yet taken prescribed d/c meds of metophrol xeralto since [facility], so [facility] order arrives today. once in ED his helps corroborate they are concerned about a few episodes of diffuse heavy diaphoresis ea in the evening. says he's seemed weak overall. pt clarifies w/ assisting he hasn't lost consciosness but gets lightheaded at times standing. no falls. he doesn't think he's had fevers just sweats. he doesn't have any prior sensation of being in A fib they just told him he was in the hospital. denies any (exertional or pleuritic) pain or dyspnea. no orthopnea or PND, though one of sweating episodes during sleeping last night says sheets were soaked and he was weak standing him up to bathroom. he and want to be proactive to make sure he's not getting worse since in 2 days of being home has felt generally weaker than his baseline with near blacking out. no n/v/HERNANDEZ vision changes. no cough or new URI sx. says he hasn't noticed urinary or bowel changes. no abd or back or flank pain. no rashes. - Related Data Allergies/Adverse Reactions: No Known Allergies Allergy (Unverified 01/22/19 05:56) Home Medications: Patient doesn't know the names of his meds Past Medical History - Social History Smoking Status: Never Smoker Family History: Reviewed & Not Pertinent. denies: CAD, DM, Hypertension, Malignancy Patient has suicidal ideation: No Patient has homicidal ideation: No - Past Medical History Cardiac Medical History: Reports: Hx Atrial Fibrillation - since hospitalization w/ d/c 01/20/19, Hx Coronary Artery Disease - coronary stent noted CTA 01/20/19, Hx Hypertension Denies: Hx Congestive Heart Failure, Hx DVT, Hx Heart Attack, Hx Hypercholesterolemia, Hx Pulmonary Embolism Pulmonary Medical History: Reports: Hx COPD Denies: Hx Asthma, Hx Respiratory Failure Neurological Medical History: Denies: Hx Seizures Endocrine Medical History: Denies: Hx Diabetes Mellitus Type 1, Hx Diabetes Mellitus Type 2, Hx Hyperthyroidism, Hx Hypothyroidism GI Medical History: Denies: Hx Cirrhosis, Hx Crohn's Disease, Hx Hepatitis, Hx Ulcerative Colitis Musculoskeletal Medical History: Denies Hx Arthritis, Denies Hx Gout Skin Medical History: Denies Hx Eczema, Denies Hx Psoriasis Psychiatric Medical History: Denies: Hx Depression Infectious Medical History: Denies: Hx Hepatitis Review of Systems - Review of Systems Constitutional: See HPI EENT: No symptoms reported Cardiovascular: No symptoms reported, See HPI, Lightheaded. denies: Chest pain, Palpitations, Heart racing, Orthopnea, Dyspnea, Syncope, Edema, Paroxysmal Nocturnal Dysp Respiratory: No symptoms reported Gastrointestinal: No symptoms reported Genitourinary: No symptoms reported Male Genitourinary: No symptoms reported Musculoskeletal: No symptoms reported Skin: No symptoms reported Hematologic/Lymphatic: No symptoms reported Neurological/Psychological: No symptoms reported Physical Exam - Vital signs Vitals: Temp Pulse Resp BP Pulse Ox 97.6 F 96 18 139/95 H 98 01/22/19 05:56 01/22/19 05:56 01/22/19 05:56 01/22/19 05:56 01/22/19 05:56 Interpretation: Normal - Notes Notes: HR on supine, sitting, standing doesn't change much. though his BP does decrease very minimally. he denies sx of orthostasis here. looks like a fib on monitor but 12 lead appears sinus w/ some PVCs - General General appearance: Appears well, Alert - HEENT Head: Normocephalic, Atraumatic Eyes: Normal Pupils: PERRL - Respiratory Respiratory status: No respiratory distress Chest status: Nontender Breath sounds: Normal Chest palpation: Normal - Cardiovascular Rhythm: Other - irregular, sometimes regular ~70 to 80s Heart sounds: Normal auscultation Murmur: No Pulses: Normal: Radial - b/l symm irreg, Dorsalis pedis - b/l symm ireg Normal capillary refill: Yes - Abdominal Inspection: Normal Distension: No distension Tenderness: Nontender. No: McBurney's point, Yates's sign, Guarding, Rebound Organomegaly: No organomegaly - Back Back: Nontender. No: Deformity/step-off, CVA tenderness - despite known recent CTA findings i cant' elicit ttp at Cva's. or abd, Vertebra tenderness, Wounds - Extremities General upper extremity: Normal inspection, Nontender, Normal color, Normal ROM, Normal temperature General lower extremity: Normal inspection, Nontender, Normal color, Normal ROM, Normal temperature, Normal weight bearing. No: Herson's sign - Neurological Neuro grossly intact: Yes Cognition: Normal Orientation: AAOx4 Nohemi Coma Scale Eye Opening: Spontaneous Nohemi Coma Scale Verbal: Oriented Nohemi Coma Scale Motor: Obeys Commands Nohemi Coma Scale Total: 15 Speech: Normal Motor strength normal: LUE, RUE, LLE, RLE Sensory: Normal - Psychological Associated symptoms: Normal affect, Normal mood - Skin Skin Temperature: Warm Skin Moisture: Dry Skin Color: Normal Course - Re-evaluation Re-evalutation: 02/05/19 19:47 reviewed labs. no worsening in renal function. GFR stable. h/h also wnl and stable from 2 d/a day of d/c. pt was asymptomatic while in ED for w/u. also wasn't orthostatic on VS check. HERNANDEZ showing UTI. spoke w/ hospitalist on tonight --actually knows him and is who d/c him 2 d/a. i relayed i was concerned given his sx could be orthostasis c/w uti/pyelo but i can't be sure not arrhythmogenic in origin. here i explained his rate never seemed to be rapid and i found him sinus w/ pvc on 12 lead. she evaluated for his admission. after he was gone from ED i did ask her what plan for him was, she had come up w/ plan assuring can his meds now and be careful in the next few days watching for worsening. i think it is a good option for them; i believe will ensure he returns if not improving. - Vital Signs Vital signs: Temp Pulse Resp BP Pulse Ox 97.6 F 96 19 121/68 98 01/22/19 08:18 01/22/19 05:56 01/22/19 11:00 01/22/19 11:00 01/22/19 10:15 - Laboratory Result Diagrams: 01/22/19 09:15 01/22/19 09:15 Laboratory results interpreted by me: 01/22/19 01/22/19 09:15 11:30 BUN 21 H Creatinine 1.36 H Est GFR (MDRD) Non-Af 51 L Glucose 113 H Magnesium 2.4 H Urine Protein 100 H Ur Leukocyte Esterase LARGE H Urine Ascorbic Acid 40 H - EKG Interpretation by Me Additional EKG results interpreted by me: 01/22/19 06:13 Reviewed EKG which was performed at 6 AM read as A. fib though actually I am seeing regular P waves prior to the QRS complexes but looks like it is intermittently showing type I AV block with some intermittent PVCs. rate of around 95. Voltage within normal limits no ST elevations or depressions and then all other intervals are within normal limits compared to prior only a few days ago on 01/19/2019 this also appeared to sinus but more regular rate in the mid 50s and then possibly some conduction delay in the region of LAD. Critical Care Note - Critical Care Note Total time excluding time spent on procedures (mins): 30 Discharge - Discharge Clinical Impression: Near syncope Arrhythmia Qualifiers: Arrhythmia type: unspecified cardiac arrhythmia Qualified Code(s): I49.9 - Cardiac arrhythmia, unspecified Condition: Stable Disposition: ADMITTED INPATIENT Admitting Provider: [facility] Unit Admitted: Medical Floor Additional Instructions: Follow up with your primary care provider, Dr. Vergara, as previously scheduled. Follow up with cloud security architect as previously recommended. Recommend that you have a cardiac event monitor. Do NOT take your previously prescribed amlodipine (Norvasc) until directed to resume by your primary care provider. Continue to take your new prescriptions for metoprolol and eliquis. Complete your antibiotic therapy (Cipro). Change positions slowly. Return to the emergency department as needed for concerning symptoms. Prescriptions: Ciprofloxacin HCl [Cipro 500 mg Tablet] 500 mg PO BID #14 tablet Apixaban [Eliquis 2.5 mg Tablet] 2.5 mg PO BID #14 tablet Metoprolol Tartrate [Lopressor 50 mg Tablet] 50 mg PO Q12 #14 tablet Referrals: DYANA VERGARA PERSONAL BANKING REPRESENTATIVE [Primary Care Provider] - Follow up as needed
--- NOTE | 2019-01-22 06:48 | EKG REPORT ---
SEVERITY:- ABNORMAL ECG - ATRIAL FIBRILLATION, V-RATE 71-115 converted back to A Fib. : Confirmed by: Will Lyles MD 22-Jan-2019 06:47:30
[2019-01-22 09:33] LABS: ABSOLUTE LYMPHOCYTES (AUTO) 1.3 10^3/uL (0.5-4.7); ABSOLUTE NEUT (AUTO) 6.7 10^3/uL (1.7-8.2); BASOPHILS % (AUTO) 0.5 % (0-2); EOSINOPHILS % (AUTO) 0.3 % (0-6); HEMATOCRIT 43.3 % (37.9-51.0); HEMOGLOBIN 14.9 g/dL (13.5-17.0); LYMPHOCYTES % (AUTO) 14.6 % (13-45); MEAN CORPUSCULAR HEMOGLOBIN 31.7 pg (27.0-33.4); MEAN CORPUSCULAR HGB CONC 34.3 g/dL (32.0-36.0); MEAN CORPUSCULAR VOLUME 92 fl (80-97); PLATELET COUNT 278 10^3/uL (150-450); RED CELL DISTRIBUTION WIDTH 13.6 % (11.5-14.0); SEGMENTED NEUTROPHILS % (AUTO) 73.6 % (42-78); TOTAL CELLS COUNTED % (AUTO) 100 %; WHITE BLOOD COUNT 9.1 10^3/uL (4.0-10.5)
[2019-01-22 09:56] LABS: ALBUMIN 4.2 g/dL (3.5-5.0); ALKALINE PHOSPHATASE 80 U/L (38-126); ANION GAP 11 (5-19); ASPARTATE AMINO TRANSFERASE 30 U/L (17-59); BILIRUBIN,DIRECT 0.2 mg/dL (0.0-0.4); BILIRUBIN,TOTAL 0.9 mg/dL (0.2-1.3); BLOOD UREA NITROGEN 21 mg/dL (7-20); CALCIUM 9.8 mg/dL (8.4-10.2); CARBON DIOXIDE 29 mmol/L (22-30); CHLORIDE 101 mmol/L (98-107); GLUCOSE 113 mg/dL (75-110); POTASSIUM 3.8 mmol/L (3.6-5.0); TOTAL PROTEIN 7.7 g/dL (6.3-8.2)
[2019-01-22 11:48] VITALS: BP 121/68
[2019-01-22 12:04] LABS: APPEARANCE,URINE SLIGHTLY-CLOUDY; BILIRUBIN,URINE NEGATIVE (NEGATIVE); COLOR,URINE YELLOW; GLUCOSE, URINE NEGATIVE (NEGATIVE); KETONES,URINE NEGATIVE (NEGATIVE); LEUKOCYTE ESTERASE,URINE LARGE (NEGATIVE); NITRITE,URINE NEGATIVE (NEGATIVE); PROTEIN,URINE 100 mg/dL (NEGATIVE); URINE SPECIFIC GRAVITY 1.026; UROBILINOGEN,URINE NEGATIVE mg/dL (<2.0)
[2019-01-22] MEDS ORDERED: METOPROLOL TARTRATE 50 MG TABLET PO ONE (12:21)
[2019-01-22] MEDS ORDERED: APIXABAN 2.5 MG TABLET PO ONE (12:22)
[2019-01-22] MEDS ORDERED: CIPROFLOXACIN HCL 500 MG TABLET PO ONE (12:22)
--- NOTE | 2019-01-22 12:27 | PDOC CONSULTATION ---
Consultation Consult Date: 01/22/19 Attending physician:: CHEVY MUNSON Provider Consulted: JUAN CARLOS KONG History of Present Illness Admission Date/PCP: DYANA RODRIGUEZ NP Patient complains of: Diaphoresis History of Present Illness: DAVIS BARON is a 78 year old male with a past medical history significant for hypertension, COPD, recent diagnosis of atrial fibrillation, renal infarct, and urinary tract infection discharged from our facility on the who presented t o the emergency department today with a complaint of intermittent diaphoretic episodes associated with some fatigue. He does report one near syncopal episode; did not lose consciousness or fall. He did have to brace himself against the bathroom counter. He denies chest pain, palpitations, dyspnea, orthopnea, abdominal pain, nausea vomiting and diarrhea. He does admit that he has not taken his prescribed medications as he is waiting for them to arrive mail order through the [facility]. Evaluation in the emergency department today is unremarkable with stable vital signs, normal orthostatic blood pressures, normal CBC benign chemistry, negative troponin, EKG demonstrating atrial fibrillation with a heart rate in the 90s. His urinalysis does show worsening UTI. He was referred to the hospital service for evaluation for admission. 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 GI Medical History: Denies: Cirrhosis, Crohn's Disease, Hepatitis, Ulcerative Colitis Musculoskeltal Medical History: Denies: Arthritis, Gout Skin Medical History: Denies: Eczema, Psoriasis Psychiatric Medical History: Reports: Dementia Denies: Depression Hematology: Denies: Anemia, Bleeding Tendencies Past Surgical History Past Surgical History: Reports: None Social History Information Source: Patient, Relative, [facility] Records Lives with: Family Smoking Status: Never Smoker Frequency of Alcohol Use: None Hx Recreational Drug Use: No Drugs: None Hx Prescription Drug Abuse: No - Advance Directive Resuscitation Status: Full Code Family History Family History: Reviewed & Not Pertinent. denies: CAD, DM, Hypertension, Malignancy Parental Family History Reviewed: Yes Children Family History Reviewed: Yes Sibling(s) Family History Reviewed.: Yes Medication/Allergy Home Medications: Albuterol Sulfate [Proair HFA Inhalation Aerosol 8.5 gm MDI] 2 puff IH Q4HP PRN 01/19/19 Multivitamin [Multiple Vitamins] 1 tab PO DAILY 01/19/19 Acetaminophen [Tylenol 325 mg Tablet] 650 mg PO Q4HP PRN tablet 01/20/19 Apixaban [Eliquis 2.5 mg Tablet] 2.5 mg PO BID #14 tablet 01/22/19 Ciprofloxacin HCl [Cipro 500 mg Tablet] 500 mg PO BID #14 tablet 01/22/19 Metoprolol Tartrate [Lopressor 50 mg Tablet] 50 mg PO Q12 #14 tablet 01/22/19 Allergies/Adverse Reactions: No Known Allergies Allergy (Unverified 01/22/19 05:56) Review of Systems Constitutional: PRESENT: as per HPI. ABSENT: chills, fever(s), headache(s), weight gain, weight loss Eyes: ABSENT: visual disturbances Ears: ABSENT: hearing changes Cardiovascular: ABSENT: chest pain, dyspnea on exertion, edema, orthropnea, palpitations Respiratory: ABSENT: cough, hemoptysis Gastrointestinal: ABSENT: abdominal pain, constipation, diarrhea, hematemesis, hematochezia, nausea, vomiting Genitourinary: ABSENT: dysuria, hematuria Musculoskeletal: ABSENT: joint swelling Integumentary: ABSENT: rash, wounds Neurological: PRESENT: as per HPI. ABSENT: abnormal gait, abnormal speech, confusion, dizziness, focal weakness, syncope Psychiatric: ABSENT: anxiety, depression, homidical ideation, suicidal ideation Endocrine: ABSENT: cold intolerance, heat intolerance, polydipsia, polyuria Hematologic/Lymphatic: ABSENT: easy bleeding, easy bruising Physical Exam Vital Signs: Temp Pulse Resp BP Pulse Ox 97.6 F 96 19 121/68 98 01/22/19 08:18 01/22/19 05:56 01/22/19 11:00 01/22/19 11:00 01/22/19 10:15 Intake & Output 01/21/19 01/22/19 01/23/19 06:59 06:59 06:59 Weight 88 kg General appearance: PRESENT: no acute distress, cooperative, well-developed, well-nourished Head exam: PRESENT: atraumatic, normocephalic Eye exam: PRESENT: conjunctiva pink, EOMI, PERRLA. ABSENT: scleral icterus Ear exam: PRESENT: normal external ear exam Mouth exam: PRESENT: moist, tongue midline Neck exam: ABSENT: carotid bruit, JVD, lymphadenopathy, thyromegaly Respiratory exam: PRESENT: clear to auscultation raman, symmetrical, unlabored. ABSENT: rales, rhonchi, wheezes Cardiovascular exam: PRESENT: irregular rhythm, +S1, +S2. ABSENT: diastolic murmur, rubs, systolic murmur Pulses: PRESENT: normal dorsalis pedis pul Vascular exam: PRESENT: normal capillary refill GI/Abdominal exam: PRESENT: normal bowel sounds, soft. ABSENT: distended, guarding, mass, organolmegaly, rebound, tenderness Rectal exam: PRESENT: deferred Extremities exam: PRESENT: full ROM. ABSENT: calf tenderness, clubbing, pedal edema Neurological exam: PRESENT: alert, awake, oriented to person, oriented to place, oriented to time, oriented to situation, CN II-XII grossly intact, other - Slight forgetfulness and repetitiveness. ABSENT: motor sensory deficit Psychiatric exam: PRESENT: appropriate affect, normal mood. ABSENT: homicidal ideation, suicidal ideation Skin exam: PRESENT: dry, intact, warm. ABSENT: cyanosis, rash Results Laboratory Results: 01/22/19 09:15 01/22/19 09:15 01/22/19 01/22/19 01/22/19 09:15 09:15 11:30 WBC 9.1 RBC 4.70 Hgb 14.9 Hct 43.3 MCV 92 MCH 31.7 MCHC 34.3 RDW 13.6 Plt Count 278 Seg Neutrophils % 73.6 Sodium 140.7 Potassium 3.8 Chloride 101 Carbon Dioxide 29 Anion Gap 11 BUN 21 H Creatinine 1.36 H Est GFR ( Amer) > 60 Glucose 113 H Calcium 9.8 Magnesium 2.4 H Total Bilirubin 0.9 AST 30 Alkaline Phosphatase 80 Total Protein 7.7 Albumin 4.2 Urine Color YELLOW Urine Appearance SLIGHTLY-CLOUDY Urine pH 5.0 Ur Specific [place] 1.026 Urine Protein 100 H Urine Glucose (UA) NEGATIVE Urine Ketones NEGATIVE Urine Blood NEGATIVE Urine Nitrite NEGATIVE Ur Leukocyte Esterase LARGE H Urine WBC (Auto) 132 Urine RBC (Auto) 10 01/22/19 09:15 Troponin I < 0.012 Assessment and Plan - Diagnosis (1) Atrial fibrillation Qualifiers: Atrial fibrillation type: paroxysmal Qualified Code(s): I48.0 - Paroxysmal atrial fibrillation Is this a current diagnosis for this admission?: Yes (2) Near syncope Is this a current diagnosis for this admission?: Yes (3) Essential hypertension Is this a current diagnosis for this admission?: Yes (4) Pyelonephritis Is this a current diagnosis for this admission?: Yes - Plan Summary Summary: Discussed with the patient and his significant other his current symptoms. Advised that his symptoms could be explained by his uncontrolled atrial fibrillation; patient had been in normal sinus rhythm for greater than 24 hours prior to his discharge. He was noted to move in and out of sinus rhythm and atrial fibrillation during my assessment. His symptoms could also be explained by his worsening urinary tract infection. Unfortunately the lack of medications is contributed to both of these events. The patient was informed that he could be admitted for observation overnight with likely discharge tomorrow, however, much of the work-up for the symptoms he is presenting for today was completed within the last few days during his initial admission. I also presented the [facility] about [facility] to fill his [facility] while awaiting mail order. The patient and spouse both felt comfortable with going home if his prescriptions could be arranged. [facility] and spoke with his primary care provider's nurse. Explained the situation regarding his mail order prescriptions and resultant worsening symptoms and emergency department visit. The [facility] assured me that they would be able to authorize an emergency refill of his needed prescriptions due to a delay in receipt of his mail order prescriptions. The patient was provided the first dose of his metoprolol, ciprofloxacin, and Eliquis prior to discharge from the ED with instructions to take his late dose late this evening (in 10-11 hrs). He was further advised to return to the emergency department if he had any new questions or concerns. - Time Time Spent with patient: 35 or more minutes Medications reviewed and adjusted accordingly: Yes Anticipated discharge: Home Within: Other - d/c scar edirectly from ED
== END 2019-01-22 13:09 | disposition other institution (70) ==
LOC: ER 05:47
DX: R55 Syncope and collapse (principal); I49.9 Cardiac arrhythmia, unspecified; I10 Essential (primary) hypertension; J44.9 Chronic obstructive pulmonary disease, unspecified; R61 Generalized hyperhidrosis; R42 Dizziness and giddiness; I25.10 Atherosclerotic heart disease of native coronary artery without angina pectoris; Z95.5 Presence of coronary angioplasty implant and graft
CPT/HCPCS: 36415; 80053; 81001; 83735; 84484; 85025; 93005; 93010; 99285